=== PATIENT | female | born 1965 | race Caucasian/White ===

== ENCOUNTER 2018-10-17 15:25 | Inpatient (IN) ==
[2018-10-17] MEDS ORDERED: ONDANSETRON 4 MG/2 ML VIAL IV STA (16:00)
[2018-10-17] MEDS ORDERED: SODIUM CHLORIDE 0.9% 1,000 ML IV STA ×3 (16:00→19:39)
[2018-10-17] MEDS ORDERED: PANTOPRAZOLE 40 MG VIAL IV STA (16:00)
[2018-10-17 16:28] LABS: Basophils % 0.2 % (0.0-0.8); Eosinophils # 0.5 10*3/uL (0.0-0.87); Eosinophils % 7.7 % (0.00-10.9); Hematocrit 39.2 VOL% (35.7-47.0); Hemoglobin 12.4 GM/DL (12.0-16.0); Immature Granulocytes % 0.5 %; Immature Granulocytes Absolute 0.03 #; Lymphocytes # 1.1 10*3/uL (1.4-4.0); Lymphocytes % 16.1 % (21.3-54.2); Mean Corpuscular HGB Conc 31.6 GM/DL (32-36); Mean Corpuscular Hemoglobin 34 PG (27-34); Mean Corpuscular Volume 105.9 FL (87-102); Mean Platelet Volume 10.8 FL (9.6-12.0); Monocytes # 0.8 10*3/uL (0.11-0.8); Monocytes % 12.4 % (1.7-12.7); Neutrophils # 4.2 10*3/uL (1.4-7.4); Neutrophils % 63.1 % (38.7-73.9); Platelet Count 124 T/CUMM (130-400); Red Cell Distribution Width 13.2 % (9.3-17.3); White Blood Count 6.6 T/CUMM (4-12)
[2018-10-17 16:49] LABS: PT Patient Result 10.7 SECS; Partial Thromboplastin Time 23.6 SECS (0-40)
[2018-10-17 16:51] LABS: Apearance,Urine CLOUDY (Clear); Bilirubin,Urine Negative (Negative); Blood, Urine Negative (Negative); Glucose,Urine (UA) Negative (Negative); Hyaline Casts,Urine 4 /LPF (0-3); Ketones,Urine Negative (Negative); Mucus,Urine Occasional /LPF (Occasional); Nitrite,Urine Negative (Negative); Protein,Urine 30 MG/DL; RBC,Urine 1 /HPF (0-4); Squamous Epithelial Cell,Urine Occasional /HPF (0-10); Urine Specific Gravity 1.018 (1.001-1.035); WBC,Urine 3 /HPF (0-6)
[2018-10-17 16:52] LABS: Urine Color Yellow (Yellow)
[2018-10-17 17:00] LABS: Alanine Aminotransferase 35 U/L (13-56); Alkaline Phosphatase 51 U/L (45-117); Aspartate Amino Transferase 32 U/L (0-37); Blood Urea Nitrogen 44 MG/DL (7-18); Calcium 8.7 MG/DL (8.5-10.1); Glucose 99 MG/DL (74-106); Potassium 4.6 MMOL/L (3.5-5.1); Sodium 136 MMOL/L (136-145); Total Protein 6.3 G/DL (6.4-8.3); Troponin I < 0.015 NG/ML (0.00-0.045)
[2018-10-17] MEDS ORDERED: ACETAMINOPHEN 325 MG TABLET PO PRN (19:42)
[2018-10-17] MEDS: SODIUM CHLORIDE 0.9% 1,000 ML IV SCH (20:57)
[2018-10-17] MEDS ORDERED: FLUTICASONE 50 MCG NASAL SPRAY 16 GM BOTTLE BOTH NARES PRN (20:57)
[2018-10-17] MEDS ORDERED: CIPROFLOXACIN INJ 400 MG in PREMIX 1 EACH IV SCH (21:00)
[2018-10-17] MEDS ORDERED: NOREPINEPHRINE 16 MG in SODIUM CHLORIDE 0.9% 234 ML IV PRN (21:22)
[2018-10-17] MEDS ORDERED: NOREPINEPHRINE 4 MG/4 ML VIAL IV ONE (21:34)
[2018-10-17] MEDS: NOREPINEPHRINE 8 MG in SODIUM CHLORIDE 0.9% 242 ML IV PRN (21:39)
[2018-10-17] MEDS: DIVALPROEX 500 MG TABLET PO SCH (21:54)
[2018-10-17] MEDS: CALCIUM CARBONATE CHEW 500 MG TABLET PO SCH (21:54)
[2018-10-17] MEDS: OMEGA 3 ACID ETHYL ESTERS 1 GM CAPSULE PO SCH (21:54)
[2018-10-17] MEDS: MELATONIN 3 MG TABLET PO SCH (21:54)
[2018-10-17] MEDS: ROSUVASTATIN 20 MG TABLET PO SCH (21:54)
[2018-10-17] MEDS: risperiDONE 1 MG TABLET PO SCH (21:54)
[2018-10-17] MEDS: MONTELUKAST 10 MG TABLET PO SCH (21:54)
[2018-10-17] MEDS: FLUTICASONE/SALMETEROL 250-50 DISKUS 14 DOSE INH SCH (22:08)
[2018-10-17] MEDS: CIPROFLOXACIN INJ 400 MG in PREMIX 1 EACH IV SCH (22:09)
[2018-10-17] MEDS: LACTOBACILLUS ACIDOPHILUS/BULGARICUS CHEW TABLET PO SCH (22:09)
[2018-10-17 22:12] LABS: Hemoglobin 11.6 GM/DL (12.0-16.0)
[2018-10-18] MEDS ORDERED: SODIUM CHLORIDE 0.9% 1,000 ML IV ONE (02:32)
[2018-10-18] MEDS: NOREPINEPHRINE 8 MG in SODIUM CHLORIDE 0.9% 242 ML IV PRN (03:32)
[2018-10-18] MEDS ORDERED: SODIUM CHLORIDE 0.9% 500 ML IV ONE (04:00)
[2018-10-18] MEDS: DOPamine 800 MG/250 ML PREMIX IV PRN ×5 (04:08→20:31)
[2018-10-18 04:19] LABS: Basophils % 0.3 % (0.0-0.8); Eosinophils # 0.5 10*3/uL (0.0-0.87); Eosinophils % 6.6 % (0.00-10.9); Hematocrit 37.3 VOL% (35.7-47.0); Hemoglobin 11.6 GM/DL (12.0-16.0); Immature Granulocytes % 0.3 %; Immature Granulocytes Absolute 0.02 #; Lymphocytes # 1.2 10*3/uL (1.4-4.0); Mean Corpuscular HGB Conc 31.1 GM/DL (32-36); Mean Corpuscular Hemoglobin 33 PG (27-34); Mean Corpuscular Volume 107.2 FL (87-102); Mean Platelet Volume 11.6 FL (9.6-12.0); Neutrophils # 4.7 10*3/uL (1.4-7.4); Neutrophils % 63.8 % (38.7-73.9); Red Blood Count 3.48 MC/CUMM (3.8-5.5); Red Cell Distribution Width 13.4 % (9.3-17.3); White Blood Count 7.3 T/CUMM (4-12)
[2018-10-18 04:20] LABS: Platelet Count 94 T/CUMM (130-400)
[2018-10-18] MEDS: ONDANSETRON 4 MG/2 ML VIAL IV PRN ×2 (04:39→12:55)
[2018-10-18 04:47] LABS: Calcium 7.6 MG/DL (8.5-10.1); Osmolality,Calculated 288.5 MOS/KG (273-304); Potassium 4.8 MMOL/L (3.5-5.1)
[2018-10-18] MEDS ORDERED: HYDROCORTISONE 100 MG VIAL IV ONE (04:48)
[2018-10-18] MEDS: SODIUM CHLORIDE 0.9% 1,000 ML IV SCH (04:57)
[2018-10-18 05:03] LABS: Platelet Estimate Decreased
[2018-10-18 05:04] LABS: Polychromasia Slight
[2018-10-18 05:12] LABS: ABG Base Excess -5.9 MMOL/L (-2.5-2.5); ABG HCO3 19.5 MMOL/L (20-26); ABG Oxygen Saturation 93.9 % (95-100); ABG PH 7.259 (7.35-7.45); ABG PO2 76.9 MM HG (80-95); ABG TCO2 19.4 MMOL/L (23-27)
[2018-10-18] MEDS ORDERED: PROMETHAZINE 25 MG/1 ML VIAL IM ONE (05:13)
[2018-10-18 05:20] LABS: Free T4 (Free Thyroxine) 0.82 NG/DL (0.76-1.46); Thyroid Stimulating Hormone 1.47 uIU/ml (0.358-3.74)
[2018-10-18] MEDS ORDERED: SODIUM BICARBONATE 50 MEQ/50 ML SYRINGE IV ONE ×2 (05:23→05:27)
[2018-10-18] MEDS ORDERED: VANCOMYCIN INJ 1,500 MG in SODIUM CHLORIDE 0.9% 500 ML IV SCH (05:31)
[2018-10-18 05:52] LABS: Troponin I < 0.015 NG/ML (0.00-0.045)
[2018-10-18] MEDS: CALCIUM CARBONATE CHEW 500 MG TABLET PO SCH ×3 (06:07→21:37)
[2018-10-18] MEDS: PANTOPRAZOLE 40 MG TABLET PO SCH (06:07)
[2018-10-18] MEDS ORDERED: NOREPINEPHRINE 16 MG in SODIUM CHLORIDE 0.9% 234 ML IV PRN (09:00)
[2018-10-18 09:50] LABS: Hematocrit 38.9 VOL% (35.7-47.0); Hemoglobin 12.5 GM/DL (12.0-16.0)
[2018-10-18] MEDS: MULTIVITAMIN (CENTRUM) TABLET PO SCH (10:14)
[2018-10-18] MEDS: OMEGA 3 ACID ETHYL ESTERS 1 GM CAPSULE PO SCH ×2 (10:14→21:37)
[2018-10-18] MEDS: risperiDONE 1 MG TABLET PO SCH ×2 (10:14→21:37)
[2018-10-18] MEDS: DIVALPROEX 500 MG TABLET PO SCH ×2 (10:14→21:37)
[2018-10-18] MEDS: SERTRALINE 100 MG TABLET PO SCH (10:14)
[2018-10-18] MEDS: FLUTICASONE/SALMETEROL 250-50 DISKUS 14 DOSE INH SCH ×2 (10:15→21:51)
[2018-10-18] MEDS: LACTOBACILLUS ACIDOPHILUS/BULGARICUS CHEW TABLET PO SCH ×2 (10:15→21:37)
[2018-10-18 16:15] LABS: Hematocrit 34.4 VOL% (35.7-47.0); Hemoglobin 11.3 GM/DL (12.0-16.0)
[2018-10-18] MEDS: ROSUVASTATIN 20 MG TABLET PO SCH (21:37)
[2018-10-18] MEDS: MELATONIN 3 MG TABLET PO SCH (21:38)
[2018-10-18] MEDS: MONTELUKAST 10 MG TABLET PO SCH (21:38)
[2018-10-18] MEDS: CIPROFLOXACIN INJ 400 MG in PREMIX 1 EACH IV SCH (21:49)
[2018-10-19 04:34] LABS: Basophils % 0.4 % (0.0-0.8); Eosinophils # 0.2 10*3/uL (0.0-0.87); Eosinophils % 3.2 % (0.00-10.9); Hematocrit 33.1 VOL% (35.7-47.0); Hemoglobin 10.4 GM/DL (12.0-16.0); Immature Granulocytes % 0.2 %; Immature Granulocytes Absolute 0.01 #; Lymphocytes # 0.9 10*3/uL (1.4-4.0); Lymphocytes % 16.4 % (21.3-54.2); Mean Corpuscular HGB Conc 31.4 GM/DL (32-36); Mean Corpuscular Hemoglobin 33 PG (27-34); Mean Corpuscular Volume 105.1 FL (87-102); Mean Platelet Volume 10.2 FL (9.6-12.0); Monocytes # 0.8 10*3/uL (0.11-0.8); Monocytes % 15.1 % (1.7-12.7); Neutrophils # 3.4 10*3/uL (1.4-7.4); Neutrophils % 64.7 % (38.7-73.9); Red Blood Count 3.15 MC/CUMM (3.8-5.5); Red Cell Distribution Width 12.7 % (9.3-17.3); White Blood Count 5.3 T/CUMM (4-12)
[2018-10-19 04:40] LABS: Platelet Count 95 T/CUMM (130-400)
[2018-10-19 04:57] LABS: Alanine Aminotransferase 21 U/L (13-56); Albumin 2.4 G/DL (3.4-5.0); Alkaline Phosphatase 42 U/L (45-117); Aspartate Amino Transferase 11 U/L (0-37); Bilirubin,Total < 0.39 MG/DL (0.2-1.0); Blood Urea Nitrogen 17 MG/DL (7-18); Calcium 8.4 MG/DL (8.5-10.1); Glucose 110 MG/DL (74-106); Osmolality,Calculated 290.7 MOS/KG (273-304); Potassium 5.1 MMOL/L (3.5-5.1); Sodium 145 MMOL/L (136-145); Total Protein 5.8 G/DL (6.4-8.3)
[2018-10-19 05:07] LABS: Platelet Estimate Decreased
[2018-10-19 05:08] LABS: Hypochromasia 1+
[2018-10-19] MEDS: PANTOPRAZOLE 40 MG TABLET PO SCH (06:26)
[2018-10-19] MEDS: CALCIUM CARBONATE CHEW 500 MG TABLET PO SCH ×3 (06:27→21:18)
[2018-10-19] MEDS: OMEGA 3 ACID ETHYL ESTERS 1 GM CAPSULE PO SCH ×2 (08:06→21:18)
[2018-10-19] MEDS: DIVALPROEX 500 MG TABLET PO SCH ×2 (08:06→21:18)
[2018-10-19] MEDS: MULTIVITAMIN (CENTRUM) TABLET PO SCH (08:06)
[2018-10-19] MEDS: SERTRALINE 100 MG TABLET PO SCH (08:06)
[2018-10-19] MEDS: risperiDONE 1 MG TABLET PO SCH ×2 (08:07→21:18)
[2018-10-19] MEDS: LACTOBACILLUS ACIDOPHILUS/BULGARICUS CHEW TABLET PO SCH ×2 (08:07→21:18)
[2018-10-19] MEDS: FLUTICASONE/SALMETEROL 250-50 DISKUS 14 DOSE INH SCH ×2 (08:07→21:18)
[2018-10-19] MEDS ORDERED: ASPIRIN EC 81 MG TABLET PO SCH (09:00)
[2018-10-19] MEDS: CIPROFLOXACIN INJ 400 MG in PREMIX 1 EACH IV SCH ×2 (09:41→23:05)
[2018-10-19] MEDS ORDERED: VANCOMYCIN INJ 1,500 MG in SODIUM CHLORIDE 0.9% 500 ML IV SCH (12:00)
[2018-10-19] MEDS: HYDROCORTISONE 1% CREAM 28 GM TUBE TOP SCH ×2 (14:31→21:18)
[2018-10-19] MEDS: MONTELUKAST 10 MG TABLET PO SCH (21:18)
[2018-10-19] MEDS: ROSUVASTATIN 20 MG TABLET PO SCH (21:18)
[2018-10-19] MEDS: MELATONIN 3 MG TABLET PO SCH (21:18)
[2018-10-20 05:05] LABS: Basophils % 0.7 % (0.0-0.8); Eosinophils # 0.4 10*3/uL (0.0-0.87); Eosinophils % 8.7 % (0.00-10.9); Hematocrit 32.2 VOL% (35.7-47.0); Hemoglobin 10.2 GM/DL (12.0-16.0); Immature Granulocytes % 0.2 %; Immature Granulocytes Absolute 0.01 #; Lymphocytes % 24.8 % (21.3-54.2); Mean Corpuscular HGB Conc 31.7 GM/DL (32-36); Mean Corpuscular Hemoglobin 34 PG (27-34); Mean Corpuscular Volume 106.3 FL (87-102); Mean Platelet Volume 10.2 FL (9.6-12.0); Monocytes # 0.5 10*3/uL (0.11-0.8); Monocytes % 12.9 % (1.7-12.7); Neutrophils # 2.2 10*3/uL (1.4-7.4); Neutrophils % 52.7 % (38.7-73.9); Red Blood Count 3.03 MC/CUMM (3.8-5.5); Red Cell Distribution Width 12.6 % (9.3-17.3); White Blood Count 4.1 T/CUMM (4-12)
[2018-10-20 05:07] LABS: Platelet Count 95 T/CUMM (130-400)
[2018-10-20 05:19] LABS: Calcium 8.7 MG/DL (8.5-10.1)
[2018-10-20 05:27] LABS: Platelet Estimate Decreased; Polychromasia Slight
[2018-10-20] MEDS: PANTOPRAZOLE 40 MG TABLET PO SCH (06:52)
[2018-10-20] MEDS: CALCIUM CARBONATE CHEW 500 MG TABLET PO SCH ×3 (06:53→21:59)
[2018-10-20] MEDS ORDERED: MAGNESIUM SULF RIDER 2 GM in PREMIX 1 EACH IV PRN (07:54)
[2018-10-20] MEDS ORDERED: MAGNESIUM SULF RIDER 4 GM in PREMIX 1 EACH IV PRN (07:54)
[2018-10-20] MEDS: MULTIVITAMIN (CENTRUM) TABLET PO SCH (09:07)
[2018-10-20] MEDS: LACTOBACILLUS ACIDOPHILUS/BULGARICUS CHEW TABLET PO SCH ×2 (09:07→21:59)
[2018-10-20] MEDS: SERTRALINE 100 MG TABLET PO SCH (09:07)
[2018-10-20] MEDS: DIVALPROEX 500 MG TABLET PO SCH ×2 (09:07→22:00)
[2018-10-20] MEDS: OMEGA 3 ACID ETHYL ESTERS 1 GM CAPSULE PO SCH ×2 (09:07→22:16)
[2018-10-20] MEDS: risperiDONE 1 MG TABLET PO SCH ×2 (09:07→21:59)
[2018-10-20] MEDS: FLUTICASONE/SALMETEROL 250-50 DISKUS 14 DOSE INH SCH ×2 (09:08→22:00)
[2018-10-20] MEDS: HYDROCORTISONE 1% CREAM 28 GM TUBE TOP SCH ×2 (09:08→22:00)
[2018-10-20] MEDS: CIPROFLOXACIN INJ 400 MG in PREMIX 1 EACH IV SCH ×2 (09:08→22:00)
[2018-10-20] MEDS: NYSTATIN POWDER 15 GM BOTTLE TOP SCH ×2 (16:12→22:16)
[2018-10-20] MEDS: CLOTRIMAZOLE/BETAMETHASONE CREAM 15 GM TUBE TOP SCH ×2 (16:12→22:00)
[2018-10-20] MEDS: ROSUVASTATIN 20 MG TABLET PO SCH (21:59)
[2018-10-20] MEDS: MONTELUKAST 10 MG TABLET PO SCH (21:59)
[2018-10-20] MEDS: MELATONIN 3 MG TABLET PO SCH (21:59)
[2018-10-21 04:57] LABS: Basophils % 0.8 % (0.0-0.8); Eosinophils # 0.4 10*3/uL (0.0-0.87); Eosinophils % 11.1 % (0.00-10.9); Hematocrit 32.2 VOL% (35.7-47.0); Hemoglobin 10.7 GM/DL (12.0-16.0); Immature Granulocytes % 0.3 %; Immature Granulocytes Absolute 0.01 #; Lymphocytes % 27.5 % (21.3-54.2); Mean Corpuscular HGB Conc 33.2 GM/DL (32-36); Mean Corpuscular Hemoglobin 34 PG (27-34); Mean Corpuscular Volume 102.9 FL (87-102); Mean Platelet Volume 10.5 FL (9.6-12.0); Monocytes # 0.5 10*3/uL (0.11-0.8); Monocytes % 14.2 % (1.7-12.7); Neutrophils # 1.7 10*3/uL (1.4-7.4); Neutrophils % 46.1 % (38.7-73.9); Red Blood Count 3.13 MC/CUMM (3.8-5.5); Red Cell Distribution Width 12.1 % (9.3-17.3); White Blood Count 3.6 T/CUMM (4-12)
[2018-10-21 05:02] LABS: Platelet Count 98 T/CUMM (130-400)
[2018-10-21 05:14] VITALS: BP 100/45
[2018-10-21 05:25] LABS: Eosinophils 19 % (0-10); Hypochromasia 1+; Lymphocytes 34 % (20-55); Ovalocytes Slight; Platelet Estimate Decreased; Segmented Neutrophils 40 % (50-85); Total Cells Counted 100
[2018-10-21 05:26] LABS: Calcium 8.8 MG/DL (8.5-10.1); Osmolality,Calculated 273.7 MOS/KG (273-304); Potassium 4.2 MMOL/L (3.5-5.1)
[2018-10-21] MEDS: CALCIUM CARBONATE CHEW 500 MG TABLET PO SCH ×2 (05:52→14:11)
[2018-10-21] MEDS: PANTOPRAZOLE 40 MG TABLET PO SCH (05:52)
[2018-10-21] MEDS: MULTIVITAMIN (CENTRUM) TABLET PO SCH (09:23)
[2018-10-21] MEDS: risperiDONE 1 MG TABLET PO SCH (09:24)
[2018-10-21] MEDS: OMEGA 3 ACID ETHYL ESTERS 1 GM CAPSULE PO SCH (09:24)
[2018-10-21] MEDS: DIVALPROEX 500 MG TABLET PO SCH (09:24)
[2018-10-21] MEDS: SERTRALINE 100 MG TABLET PO SCH (09:24)
[2018-10-21] MEDS: CLOTRIMAZOLE/BETAMETHASONE CREAM 15 GM TUBE TOP SCH (09:25)
[2018-10-21] MEDS: FLUTICASONE/SALMETEROL 250-50 DISKUS 14 DOSE INH SCH (09:25)
[2018-10-21] MEDS: LACTOBACILLUS ACIDOPHILUS/BULGARICUS CHEW TABLET PO SCH (09:25)
[2018-10-21] MEDS: HYDROCORTISONE 1% CREAM 28 GM TUBE TOP SCH (09:26)
[2018-10-21] MEDS: NYSTATIN POWDER 15 GM BOTTLE TOP SCH (09:26)
[2018-10-21] MEDS: CIPROFLOXACIN INJ 400 MG in PREMIX 1 EACH IV SCH (09:30)
[2018-10-21 13:44] LABS: Folate > 24.0 NG/ML (5.4-24.0); Vitamin B12 353 PG/ML (211-911)
[2018-10-21] MEDS ORDERED: MAGNESIUM HYDROXIDE SUSP 30 ML UDCUP PO PRN (13:49)
[2018-10-21] MEDS ORDERED: ONDANSETRON 4 MG TABLET PO PRN (13:49)
[2018-10-21] MEDS ORDERED: CYCLOBENZAPRINE 10 MG TABLET PO SCH (21:00)
[2018-10-22] MEDS ORDERED: ASPIRIN EC 81 MG TABLET PO SCH (08:00)
[2018-10-22] MEDS ORDERED: LISINOPRIL 5 MG TABLET PO SCH (08:00)
[2018-10-22] MEDS ORDERED: SPIRONOLACTONE 25 MG TABLET PO SCH (08:00)
[2018-10-22] MEDS ORDERED: ATENOLOL 25 MG TABLET PO SCH (08:00)
[2018-10-22] MEDS ORDERED: NAPROXEN 250 MG TABLET PO SCH (08:00)
== END 2018-10-21 17:17 | DRG 254 ==
LOC: EDUNIT# → EDBD → N.EDINP 15:25 → N.ED 15:25 → N.CC 20:28 → SUATTDRO 10-18 08:26
PROVIDERS: ADMIT Internal Medicine; ATTEND Phlebology

== ENCOUNTER 2020-01-19 08:40 | Inpatient (IN) ==
[2020-01-19] MEDS ORDERED: SODIUM CHLORIDE 0.9% 1,000 ML IV STA (09:40)
[2020-01-19] MEDS ORDERED: VANCOMYCIN INJ 1,000 MG in SODIUM CHLORIDE 0.9% 250 ML IV STA (09:48)
[2020-01-19] MEDS ORDERED: NOREPINEPHRINE 4 MG/4 ML VIAL IV ONE (09:53)
[2020-01-19 09:57] LABS: Eosinophils % 0.6 % (0.00-10.9); Hematocrit 41.1 VOL% (35.7-47.0); Hemoglobin 13.4 GM/DL (12.0-16.0); Immature Granulocytes % 0.3 %; Immature Granulocytes Absolute 0.01 #; Lymphocytes # 0.3 10*3/uL (1.4-4.0); Lymphocytes % 8.3 % (21.3-54.2); Mean Corpuscular HGB Conc 32.6 GM/DL (32-36); Mean Corpuscular Volume 102.5 FL (87-102); Mean Platelet Volume 10.8 FL (9.6-12.0); Monocytes % 6.3 % (1.7-12.7); Neutrophils % 84.5 % (38.7-73.9); Red Blood Count 4.01 MC/CUMM (3.8-5.5); Red Cell Distribution Width 12.8 % (9.3-17.3); White Blood Count 3.5 T/CUMM (4-12)
[2020-01-19 10:00] LABS: Platelet Count 75 T/CUMM (130-400)
[2020-01-19] MEDS: NOREPINEPHRINE 8 MG in SODIUM CHLORIDE 0.9% 242 ML IV PRN (10:00)
[2020-01-19 10:10] LABS: Apearance,Urine CLEAR (Clear); Bilirubin,Urine Negative (Negative); Blood, Urine Negative (Negative); Glucose,Urine (UA) Negative (Negative); Ketones,Urine Negative (Negative); Mucus,Urine Occasional /LPF (Occasional); Nitrite,Urine Negative (Negative); Protein,Urine Negative; RBC,Urine 1 /HPF (0-4); Squamous Epithelial Cell,Urine Occasional /HPF (0-10); Urine Color Yellow (Yellow); Urine Specific Gravity 1.015 (1.001-1.035); Urine Urobilinogen < 2.0 EU/DL (0.2-1.0); WBC,Urine <1 /HPF (0-6)
[2020-01-19 10:12] LABS: Alanine Aminotransferase 31 U/L (13-56); Albumin 2.5 G/DL (3.4-5.0); Alkaline Phosphatase 69 U/L (45-117); Aspartate Amino Transferase 29 U/L (0-37); Bilirubin,Total < 0.39 MG/DL (0.2-1.0); Blood Urea Nitrogen 41 MG/DL (7-18); Calcium 8.2 MG/DL (8.5-10.1); Estimated Glom Filtration Rate 47 ML/MIN; Glucose 103 MG/DL (74-106); Total Protein 6.3 G/DL (6.4-8.3); Troponin I < 0.015 NG/ML (0.00-0.045)
[2020-01-19 10:16] LABS: Platelet Estimate Decreased
[2020-01-19 10:29] LABS: Ferritin 586.7 ng/ml (8-252)
[2020-01-19 10:40] LABS: Barbiturates Screen,Urine Negative (Negative); Benzodiazepines Screen,Urine Negative (Negative); Cannabinoid Screen,Urine Negative (Negative); Opiate Screen,Urine Positive (Negative); Phencyclidine Screen,Urine Negative (Negative)
[2020-01-19 10:58] LABS: ABG HCO3 22.7 MMOL/L (20-26); ABG Oxygen Saturation 97.7 % (95-100); ABG TCO2 25.7 MMOL/L (23-27)
[2020-01-19 11:01] LABS: ABG PCO2 72.5 MM HG (35-48); ABG PH 7.204 (7.35-7.45)
[2020-01-19 11:05] LABS: Sedimentation Rate-Westergren 30 MM/HR (0-30)
[2020-01-19] MEDS ORDERED: ONDANSETRON 4 MG/2 ML VIAL IV PRN (13:02)
[2020-01-19] MEDS ORDERED: ALBUTEROL 2.5 MG/3 ML NEB RESP TX PRN (13:02)
[2020-01-19] MEDS: LACTATED RINGERS 1,000 ML IV SCH ×2 (13:15→23:00)
[2020-01-19] MEDS: ENOXAPARIN 40 MG/0.4 ML SYRINGE SUBCUT SCH (13:25)
[2020-01-19] MEDS ORDERED: FAMOTIDINE 20 MG/2 ML VIAL IV SCH (13:30)
[2020-01-19 14:34] LABS: ABG HCO3 21.7 MMOL/L (20-26); ABG Oxygen Saturation 90.4 % (95-100); ABG PCO2 57.3 MM HG (35-48); ABG PH 7.255 (7.35-7.45); ABG PO2 68.8 MM HG (80-95); ABG TCO2 22.7 MMOL/L (23-27)
[2020-01-19] MEDS: LACTULOSE 20 GM/30 ML UDCUP PER TUBE SCH ×2 (17:19→23:30)
[2020-01-20] MEDS: ACETAMINOPHEN 325 MG TABLET PO PRN (00:43)
[2020-01-20 06:15] LABS: Basophils % 0.3 % (0.0-0.8); Eosinophils % 0.2 % (0.00-10.9); Hematocrit 41.1 VOL% (35.7-47.0); Hemoglobin 13.2 GM/DL (12.0-16.0); Immature Granulocytes % 0.3 %; Immature Granulocytes Absolute 0.02 #; Lymphocytes # 1.2 10*3/uL (1.4-4.0); Lymphocytes % 18.8 % (21.3-54.2); Mean Corpuscular HGB Conc 32.1 GM/DL (32-36); Mean Corpuscular Volume 104.1 FL (87-102); Mean Platelet Volume 10.8 FL (9.6-12.0); Monocytes % 8.4 % (1.7-12.7); Platelet Count 48 T/CUMM (130-400); Red Blood Count 3.95 MC/CUMM (3.8-5.5); Red Cell Distribution Width 13.1 % (9.3-17.3); White Blood Count 6.3 T/CUMM (4-12)
[2020-01-20 06:23] LABS: INR 1.4; PT Patient Result 14.5 SECS (9.8-11.9)
[2020-01-20] MEDS: NOREPINEPHRINE 8 MG in SODIUM CHLORIDE 0.9% 242 ML IV PRN (06:24)
[2020-01-20] MEDS: LACTULOSE 20 GM/30 ML UDCUP PER TUBE SCH ×3 (06:24→16:51)
[2020-01-20 06:33] LABS: Macrocytosis Slight
[2020-01-20 06:34] LABS: Hypochromasia Slight; Platelet Estimate Decreased
[2020-01-20 07:06] LABS: Calcium 8.2 MG/DL (8.5-10.1); Osmolality,Calculated 281.4 MOS/KG (273-304)
[2020-01-20 08:05] LABS: Pt O2 Delivery Device BIPAP
[2020-01-20 08:06] LABS: ABG Base Excess 1.7 MMOL/L (-2.5-2.5); ABG HCO3 28.6 MMOL/L (20-26); ABG Oxygen Saturation 93.7 % (95-100); ABG PCO2 54.7 MM HG (35-48); ABG PH 7.336 (7.35-7.45); ABG PO2 73.5 MM HG (80-95); ABG TCO2 30.3 MMOL/L (23-27)
[2020-01-20] MEDS: FAMOTIDINE 20 MG/2 ML VIAL IV SCH ×2 (08:31→20:45)
[2020-01-20] MEDS: LACTATED RINGERS 1,000 ML IV SCH ×2 (08:34→20:25)
[2020-01-20] MEDS: LEVOFLOXACIN INJ 750 MG in PREMIX 1 EACH IV SCH (11:16)
[2020-01-20] MEDS: ENOXAPARIN 40 MG/0.4 ML SYRINGE SUBCUT SCH (13:03)
[2020-01-20] MEDS: methylPREDNISolone SOD SUC 40 MG/1 ML VIAL IV SCH (14:46)
[2020-01-21] MEDS: methylPREDNISolone SOD SUC 40 MG/1 ML VIAL IV SCH ×2 (01:41→16:31)
[2020-01-21 04:34] LABS: Basophils % 0.2 % (0.0-0.8); Hematocrit 37.6 VOL% (35.7-47.0); Hemoglobin 12.3 GM/DL (12.0-16.0); Immature Granulocytes % 0.3 %; Immature Granulocytes Absolute 0.02 #; Lymphocytes # 0.5 10*3/uL (1.4-4.0); Lymphocytes % 7.3 % (21.3-54.2); Mean Corpuscular HGB Conc 32.7 GM/DL (32-36); Mean Corpuscular Volume 102.5 FL (87-102); Mean Platelet Volume 10.2 FL (9.6-12.0); Monocytes % 3.1 % (1.7-12.7); Neutrophils % 89.1 % (38.7-73.9); Platelet Count 59 T/CUMM (130-400); Red Blood Count 3.67 MC/CUMM (3.8-5.5); Red Cell Distribution Width 12.6 % (9.3-17.3); White Blood Count 6.2 T/CUMM (4-12)
[2020-01-21 04:46] LABS: Bilirubin,Total 0.5 MG/DL (0.2-1.0); Calcium 8.5 MG/DL (8.5-10.1); Osmolality,Calculated 284.4 MOS/KG (273-304); Total Protein 5.8 G/DL (6.4-8.3)
[2020-01-21 04:56] LABS: Band Neutrophils 10 % (0-10); Lymphocytes 4 % (20-55); Nucleated Red Blood Cells 1 (0-5); Segmented Neutrophils 83 % (50-85); Total Cells Counted 100
[2020-01-21 04:57] LABS: Hypochromasia Slight; Macrocytosis Slight
[2020-01-21 05:00] LABS: ABG HCO3 31.4 MMOL/L (20-26); ABG Oxygen Saturation 91.8 % (95-100); ABG PCO2 54.1 MM HG (35-48); ABG PH 7.382 (7.35-7.45); ABG TCO2 33.1 MMOL/L (23-27); Allen Test Positive; Pt O2 Delivery Device BIPAP
[2020-01-21] MEDS: LACTULOSE 20 GM/30 ML UDCUP PER TUBE SCH ×3 (05:40→12:21)
[2020-01-21] MEDS: LACTATED RINGERS 1,000 ML IV SCH ×2 (07:31→16:10)
[2020-01-21] MEDS ORDERED: FLUTICASONE 50 MCG NASAL SPRAY 16 GM BOTTLE BOTH NARES PRN (07:48)
[2020-01-21] MEDS ORDERED: MAGNESIUM HYDROXIDE SUSP 30 ML UDCUP PO PRN (07:48)
[2020-01-21] MEDS ORDERED: MAGNESIUM SULF RIDER 4 GM in PREMIX 1 EACH IV ONE (07:53)
[2020-01-21] MEDS ORDERED: ONDANSETRON 4 MG TABLET PO PRN (08:51)
[2020-01-21] MEDS: atenoloL 25 MG TABLET PO SCH (09:20)
[2020-01-21] MEDS: FAMOTIDINE 20 MG/2 ML VIAL IV SCH ×2 (09:20→20:50)
[2020-01-21] MEDS: MULTIVITAMIN (CENTRUM) TABLET PO SCH (09:20)
[2020-01-21] MEDS: SPIRONOLACTONE 25 MG TABLET PO SCH (09:20)
[2020-01-21] MEDS: ASPIRIN CHEW 81 MG TABLET PO SCH (09:20)
[2020-01-21] MEDS: FLUTICASONE/SALMETEROL 250-50 DISKUS 14 DOSE INH SCH (09:34)
[2020-01-21] MEDS: GLUCOSAMINE HCL MSM CHONDROITN PO SCH (09:37)
[2020-01-21] MEDS ORDERED: POTASSIUM PHOSPHATE 40 MMOL in SODIUM CHLORIDE 0.9% 250 ML IV ONE (10:00)
[2020-01-21] MEDS: LACTOBACILLUS ACIDOPHILUS/BULGARICUS CHEW TABLET PO SCH (13:16)
[2020-01-21] MEDS: ENOXAPARIN 40 MG/0.4 ML SYRINGE SUBCUT SCH (14:45)
[2020-01-21] MEDS ORDERED: REMDESIVIR 200 MG in SODIUM CHLORIDE 0.9% 210 ML IV ONE (15:00)
[2020-01-21] MEDS: LEVOFLOXACIN INJ 750 MG in PREMIX 1 EACH IV SCH (18:04)
[2020-01-21] MEDS: ARIPiprazole 5 MG TABLET PO SCH (20:50)
[2020-01-21] MEDS: MONTELUKAST 10 MG TABLET PO SCH (20:50)
[2020-01-21] MEDS: ROSUVASTATIN 20 MG TABLET PO SCH (20:50)
[2020-01-21] MEDS: DIVALPROEX 500 MG TABLET PO SCH (20:50)
[2020-01-21] MEDS: OMEGA 3 ACID ETHYL ESTERS 1 GM CAPSULE PO SCH (20:50)
[2020-01-21] MEDS: MORPHINE 4 MG/1 ML VIAL IV PRN (21:22)
[2020-01-22] MEDS: methylPREDNISolone SOD SUC 40 MG/1 ML VIAL IV SCH ×2 (04:00→15:53)
[2020-01-22 05:34] LABS: Basophils % 0.1 % (0.0-0.8); Hematocrit 38.6 VOL% (35.7-47.0); Hemoglobin 12.2 GM/DL (12.0-16.0); Immature Granulocytes % 0.6 %; Immature Granulocytes Absolute 0.05 #; Lymphocytes # 0.5 10*3/uL (1.4-4.0); Lymphocytes % 5.7 % (21.3-54.2); Mean Corpuscular HGB Conc 31.6 GM/DL (32-36); Mean Platelet Volume 10.5 FL (9.6-12.0); Monocytes % 5.2 % (1.7-12.7); Neutrophils % 88.4 % (38.7-73.9); Red Blood Count 3.64 MC/CUMM (3.8-5.5); Red Cell Distribution Width 12.4 % (9.3-17.3); White Blood Count 8.6 T/CUMM (4-12)
[2020-01-22 05:35] LABS: Platelet Count 77 T/CUMM (130-400)
[2020-01-22 05:54] LABS: Bilirubin,Total 0.9 MG/DL (0.2-1.0); Calcium 8.3 MG/DL (8.5-10.1); Osmolality,Calculated 283.3 MOS/KG (273-304); Total Protein 5.9 G/DL (6.4-8.3)
[2020-01-22 06:02] LABS: Hypochromasia Slight; Macrocytosis Slight
[2020-01-22 06:03] LABS: Platelet Estimate Decreased
[2020-01-22] MEDS: FLUTICASONE/SALMETEROL 250-50 DISKUS 14 DOSE INH SCH ×3 (06:08→20:00)
[2020-01-22] MEDS: CALCIUM CARBONATE CHEW 500 MG TABLET PO SCH (06:09)
[2020-01-22] MEDS: GLUCOSAMINE HCL MSM CHONDROITN PO SCH (08:22)
[2020-01-22] MEDS: LACTOBACILLUS ACIDOPHILUS/BULGARICUS CHEW TABLET PO SCH (08:23)
[2020-01-22] MEDS: SPIRONOLACTONE 25 MG TABLET PO SCH (08:23)
[2020-01-22] MEDS: MULTIVITAMIN (CENTRUM) TABLET PO SCH (08:24)
[2020-01-22] MEDS: ASPIRIN CHEW 81 MG TABLET PO SCH (08:24)
[2020-01-22] MEDS: LACTULOSE 20 GM/30 ML UDCUP PER TUBE SCH (08:24)
[2020-01-22] MEDS: atenoloL 25 MG TABLET PO SCH (08:24)
[2020-01-22] MEDS: FLUoxetine 20 MG CAPSULE PO SCH (08:24)
[2020-01-22] MEDS: OMEGA 3 ACID ETHYL ESTERS 1 GM CAPSULE PO SCH ×2 (08:24→20:00)
[2020-01-22] MEDS: FAMOTIDINE 20 MG/2 ML VIAL IV SCH ×2 (08:24→20:00)
[2020-01-22] MEDS: ENOXAPARIN 120 MG/0.8 ML SYRINGE SUBCUT SCH ×2 (10:53→22:02)
[2020-01-22] MEDS: REMDESIVIR 100 MG in SODIUM CHLORIDE 0.9% 230 ML IV SCH (15:53)
[2020-01-22] MEDS: LEVOFLOXACIN INJ 750 MG in PREMIX 1 EACH IV SCH (17:11)
[2020-01-22] MEDS: ARIPiprazole 5 MG TABLET PO SCH (20:00)
[2020-01-22] MEDS: MONTELUKAST 10 MG TABLET PO SCH (20:00)
[2020-01-22] MEDS: DIVALPROEX 500 MG TABLET PO SCH (20:00)
[2020-01-22] MEDS: ROSUVASTATIN 20 MG TABLET PO SCH (20:00)
[2020-01-23] MEDS: MORPHINE 4 MG/1 ML VIAL IV PRN (00:35)
[2020-01-23] MEDS: methylPREDNISolone SOD SUC 40 MG/1 ML VIAL IV SCH ×2 (02:00→16:48)
[2020-01-23] MEDS: CALCIUM CARBONATE CHEW 500 MG TABLET PO SCH (06:48)
[2020-01-23 08:08] LABS: ABG Base Excess 6.5 MMOL/L (-2.5-2.5); ABG Oxygen Saturation 89.8 % (95-100); ABG PCO2 49.9 MM HG (35-48); ABG PH 7.425 (7.35-7.45); ABG TCO2 33.5 MMOL/L (23-27); Pt O2 Delivery Device BIPAP
[2020-01-23] MEDS: FLUTICASONE/SALMETEROL 250-50 DISKUS 14 DOSE INH SCH ×2 (09:04→22:19)
[2020-01-23] MEDS: LACTOBACILLUS ACIDOPHILUS/BULGARICUS CHEW TABLET PO SCH (09:05)
[2020-01-23] MEDS: FAMOTIDINE 20 MG/2 ML VIAL IV SCH ×2 (09:05→21:45)
[2020-01-23] MEDS: ENOXAPARIN 120 MG/0.8 ML SYRINGE SUBCUT SCH ×2 (09:05→21:54)
[2020-01-23] MEDS: LACTULOSE 20 GM/30 ML UDCUP PER TUBE SCH (09:06)
[2020-01-23] MEDS: OMEGA 3 ACID ETHYL ESTERS 1 GM CAPSULE PO SCH ×2 (09:07→21:53)
[2020-01-23] MEDS: FLUoxetine 20 MG CAPSULE PO SCH (09:07)
[2020-01-23] MEDS: SPIRONOLACTONE 25 MG TABLET PO SCH (09:07)
[2020-01-23] MEDS: MULTIVITAMIN (CENTRUM) TABLET PO SCH (09:07)
[2020-01-23] MEDS: GLUCOSAMINE HCL MSM CHONDROITN PO SCH (09:08)
[2020-01-23] MEDS: atenoloL 25 MG TABLET PO SCH (09:08)
[2020-01-23] MEDS: ASPIRIN CHEW 81 MG TABLET PO SCH (09:08)
[2020-01-23 09:50] LABS: Basophils % 0.2 % (0.0-0.8); Hematocrit 39.5 VOL% (35.7-47.0); Hemoglobin 12.9 GM/DL (12.0-16.0); Immature Granulocytes % 1.4 %; Immature Granulocytes Absolute 0.06 #; Lymphocytes # 0.7 10*3/uL (1.4-4.0); Lymphocytes % 15.5 % (21.3-54.2); Mean Corpuscular HGB Conc 32.7 GM/DL (32-36); Mean Corpuscular Volume 102.1 FL (87-102); Mean Platelet Volume 10.4 FL (9.6-12.0); Monocytes % 11.4 % (1.7-12.7); Neutrophils % 71.5 % (38.7-73.9); Red Blood Count 3.87 MC/CUMM (3.8-5.5); Red Cell Distribution Width 12.3 % (9.3-17.3); White Blood Count 4.4 T/CUMM (4-12)
[2020-01-23 09:52] LABS: Platelet Count 76 T/CUMM (130-400)
[2020-01-23 10:21] LABS: Hypochromasia 1+
[2020-01-23 10:22] LABS: Microcytosis Slight; Platelet Estimate Decreased
[2020-01-23 13:37] LABS: Alanine Aminotransferase 30 U/L (13-56); Albumin 1.8 G/DL (3.4-5.0); Alkaline Phosphatase 52 U/L (45-117); Aspartate Amino Transferase 33 U/L (0-37); Bilirubin,Total 0.44 MG/DL (0.2-1.0); Blood Urea Nitrogen 20 MG/DL (7-18); Calcium 8.4 MG/DL (8.5-10.1); Estimated Glom Filtration Rate 205 ML/MIN; Glucose 108 MG/DL (74-106); Total Protein 5.8 G/DL (6.4-8.3)
[2020-01-23 13:38] LABS: Osmolality,Calculated 280.5 MOS/KG (273-304)
[2020-01-23] MEDS: REMDESIVIR 100 MG in SODIUM CHLORIDE 0.9% 230 ML IV SCH (16:44)
[2020-01-23] MEDS: LEVOFLOXACIN INJ 750 MG in PREMIX 1 EACH IV SCH (18:43)
[2020-01-23] MEDS: ARIPiprazole 5 MG TABLET PO SCH (21:45)
[2020-01-23] MEDS: DIVALPROEX 500 MG TABLET PO SCH (21:46)
[2020-01-23] MEDS: MONTELUKAST 10 MG TABLET PO SCH (21:54)
[2020-01-23] MEDS: ROSUVASTATIN 20 MG TABLET PO SCH (21:59)
[2020-01-24] MEDS: methylPREDNISolone SOD SUC 40 MG/1 ML VIAL IV SCH ×2 (02:30→14:52)
[2020-01-24] MEDS: CALCIUM CARBONATE CHEW 500 MG TABLET PO SCH (06:00)
[2020-01-24] MEDS: GLUCOSAMINE HCL MSM CHONDROITN PO SCH (09:04)
[2020-01-24] MEDS: MULTIVITAMIN (CENTRUM) TABLET PO SCH (09:06)
[2020-01-24] MEDS: atenoloL 25 MG TABLET PO SCH (09:06)
[2020-01-24] MEDS: LACTOBACILLUS ACIDOPHILUS/BULGARICUS CHEW TABLET PO SCH (09:06)
[2020-01-24] MEDS: ASPIRIN CHEW 81 MG TABLET PO SCH (09:06)
[2020-01-24] MEDS: FLUoxetine 20 MG CAPSULE PO SCH (09:07)
[2020-01-24] MEDS: SPIRONOLACTONE 25 MG TABLET PO SCH (09:07)
[2020-01-24] MEDS: OMEGA 3 ACID ETHYL ESTERS 1 GM CAPSULE PO SCH ×2 (09:07→22:07)
[2020-01-24] MEDS: FAMOTIDINE 20 MG/2 ML VIAL IV SCH ×2 (09:07→21:55)
[2020-01-24] MEDS: LACTULOSE 20 GM/30 ML UDCUP PER TUBE SCH (09:07)
[2020-01-24] MEDS: ENOXAPARIN 120 MG/0.8 ML SYRINGE SUBCUT SCH ×2 (09:08→22:08)
[2020-01-24] MEDS: FLUTICASONE/SALMETEROL 250-50 DISKUS 14 DOSE INH SCH ×2 (09:22→22:06)
[2020-01-24] MEDS: REMDESIVIR 100 MG in SODIUM CHLORIDE 0.9% 230 ML IV SCH (14:52)
[2020-01-24] MEDS: LEVOFLOXACIN INJ 750 MG in PREMIX 1 EACH IV SCH (16:32)
[2020-01-24] MEDS: ACETAMINOPHEN 325 MG TABLET PO PRN (16:54)
[2020-01-24] MEDS: ARIPiprazole 5 MG TABLET PO SCH (22:05)
[2020-01-24] MEDS: MONTELUKAST 10 MG TABLET PO SCH (22:06)
[2020-01-24] MEDS: DIVALPROEX 500 MG TABLET PO SCH (22:07)
[2020-01-24] MEDS: ROSUVASTATIN 20 MG TABLET PO SCH (22:08)
[2020-01-25] MEDS: methylPREDNISolone SOD SUC 40 MG/1 ML VIAL IV SCH ×2 (02:35→14:50)
[2020-01-25 05:35] LABS: Basophils % 0.3 % (0.0-0.8); Hematocrit 37.3 VOL% (35.7-47.0); Hemoglobin 12.4 GM/DL (12.0-16.0); Immature Granulocytes % 2.4 %; Immature Granulocytes Absolute 0.17 #; Lymphocytes # 0.6 10*3/uL (1.4-4.0); Lymphocytes % 8.6 % (21.3-54.2); Mean Corpuscular HGB Conc 33.2 GM/DL (32-36); Mean Corpuscular Volume 100.5 FL (87-102); Monocytes % 8.8 % (1.7-12.7); Neutrophils % 79.9 % (38.7-73.9); Red Blood Count 3.71 MC/CUMM (3.8-5.5); Red Cell Distribution Width 12.3 % (9.3-17.3)
[2020-01-25] MEDS: CALCIUM CARBONATE CHEW 500 MG TABLET PO SCH (06:04)
[2020-01-25 06:05] LABS: Platelet Count 142 T/CUMM (130-400); White Blood Count 7.2 T/CUMM (4-12)
[2020-01-25 07:05] LABS: Calcium 8.6 MG/DL (8.5-10.1)
[2020-01-25 07:06] LABS: Ferritin 701.5 ng/ml (8-252)
[2020-01-25] MEDS: LACTOBACILLUS ACIDOPHILUS/BULGARICUS CHEW TABLET PO SCH (10:01)
[2020-01-25] MEDS: LACTULOSE 20 GM/30 ML UDCUP PER TUBE SCH (10:01)
[2020-01-25] MEDS: OMEGA 3 ACID ETHYL ESTERS 1 GM CAPSULE PO SCH ×2 (10:01→21:03)
[2020-01-25] MEDS: ENOXAPARIN 120 MG/0.8 ML SYRINGE SUBCUT SCH ×2 (10:02→21:22)
[2020-01-25] MEDS: ASPIRIN CHEW 81 MG TABLET PO SCH (10:02)
[2020-01-25] MEDS: FLUoxetine 20 MG CAPSULE PO SCH (10:02)
[2020-01-25] MEDS: MULTIVITAMIN (CENTRUM) TABLET PO SCH (10:02)
[2020-01-25] MEDS: atenoloL 25 MG TABLET PO SCH (10:02)
[2020-01-25] MEDS: SPIRONOLACTONE 25 MG TABLET PO SCH (10:02)
[2020-01-25] MEDS: FAMOTIDINE 20 MG/2 ML VIAL IV SCH ×2 (10:02→20:59)
[2020-01-25] MEDS: GLUCOSAMINE HCL MSM CHONDROITN PO SCH (10:03)
[2020-01-25] MEDS: FLUTICASONE/SALMETEROL 250-50 DISKUS 14 DOSE INH SCH ×2 (10:03→21:06)
[2020-01-25] MEDS: REMDESIVIR 100 MG in SODIUM CHLORIDE 0.9% 230 ML IV SCH (14:50)
[2020-01-25] MEDS: LEVOFLOXACIN INJ 750 MG in PREMIX 1 EACH IV SCH (16:08)
[2020-01-25] MEDS: MONTELUKAST 10 MG TABLET PO SCH (21:03)
[2020-01-25] MEDS: DIVALPROEX 500 MG TABLET PO SCH (21:04)
[2020-01-25] MEDS: ROSUVASTATIN 20 MG TABLET PO SCH (21:05)
[2020-01-25] MEDS: ARIPiprazole 5 MG TABLET PO SCH (21:11)
[2020-01-26] MEDS: ACETAMINOPHEN 325 MG TABLET PO PRN ×2 (01:15→20:07)
[2020-01-26] MEDS: methylPREDNISolone SOD SUC 40 MG/1 ML VIAL IV SCH ×2 (03:02→15:05)
[2020-01-26] MEDS: CALCIUM CARBONATE CHEW 500 MG TABLET PO SCH (05:42)
[2020-01-26 06:02] LABS: Calcium 8.6 MG/DL (8.5-10.1); Osmolality,Calculated 292.8 MOS/KG (273-304)
[2020-01-26] MEDS: FAMOTIDINE 20 MG/2 ML VIAL IV SCH ×2 (09:33→20:08)
[2020-01-26] MEDS: OMEGA 3 ACID ETHYL ESTERS 1 GM CAPSULE PO SCH ×2 (09:36→20:06)
[2020-01-26] MEDS: MULTIVITAMIN (CENTRUM) TABLET PO SCH (09:36)
[2020-01-26] MEDS: ENOXAPARIN 120 MG/0.8 ML SYRINGE SUBCUT SCH ×2 (09:36→20:07)
[2020-01-26] MEDS: SPIRONOLACTONE 25 MG TABLET PO SCH (09:36)
[2020-01-26] MEDS: atenoloL 25 MG TABLET PO SCH (09:36)
[2020-01-26] MEDS: LACTULOSE 20 GM/30 ML UDCUP PER TUBE SCH (09:36)
[2020-01-26] MEDS: FLUTICASONE/SALMETEROL 250-50 DISKUS 14 DOSE INH SCH ×2 (09:36→20:07)
[2020-01-26] MEDS: FLUoxetine 20 MG CAPSULE PO SCH (09:36)
[2020-01-26] MEDS: ASPIRIN CHEW 81 MG TABLET PO SCH (09:36)
[2020-01-26 10:44] LABS: Basophils % 0.5 % (0.0-0.8); Hematocrit 36.9 VOL% (35.7-47.0); Hemoglobin 12.1 GM/DL (12.0-16.0); Immature Granulocytes % 6.2 %; Immature Granulocytes Absolute 0.46 #; Lymphocytes # 0.7 10*3/uL (1.4-4.0); Lymphocytes % 9.2 % (21.3-54.2); Mean Corpuscular HGB Conc 32.8 GM/DL (32-36); Mean Corpuscular Volume 100.5 FL (87-102); Mean Platelet Volume 10.3 FL (9.6-12.0); Monocytes % 6.5 % (1.7-12.7); NRBC # 0.03 10*3/uL; Neutrophils % 77.6 % (38.7-73.9); Platelet Count 194 T/CUMM (130-400); Red Blood Count 3.67 MC/CUMM (3.8-5.5); Red Cell Distribution Width 12.2 % (9.3-17.3); White Blood Count 7.4 T/CUMM (4-12)
[2020-01-26] MEDS: GLUCOSAMINE HCL MSM CHONDROITN PO SCH (11:22)
[2020-01-26] MEDS: LACTOBACILLUS ACIDOPHILUS/BULGARICUS CHEW TABLET PO SCH (11:22)
[2020-01-26 11:26] LABS: Band Neutrophils 2 % (0-10); Lymphocytes 5 % (20-55); Segmented Neutrophils 84 % (50-85); Total Cells Counted 100
[2020-01-26 11:28] LABS: Microcytosis Slight; Ovalocytes Slight; Platelet Estimate Adequate; Polychromasia Slight; Target Cells Slight
[2020-01-26] MEDS: LEVOFLOXACIN INJ 750 MG in PREMIX 1 EACH IV SCH (11:58)
[2020-01-26] MEDS: ARIPiprazole 5 MG TABLET PO SCH (20:06)
[2020-01-26] MEDS: MONTELUKAST 10 MG TABLET PO SCH (20:07)
[2020-01-26] MEDS: DIVALPROEX 500 MG TABLET PO SCH (20:07)
[2020-01-26] MEDS: ROSUVASTATIN 20 MG TABLET PO SCH (20:07)
[2020-01-27] MEDS: methylPREDNISolone SOD SUC 40 MG/1 ML VIAL IV SCH ×2 (02:00→21:37)
[2020-01-27] MEDS: CALCIUM CARBONATE CHEW 500 MG TABLET PO SCH (05:30)
[2020-01-27 06:09] LABS: Basophils # 0.1 10*3/uL (0.0-0.2); Basophils % 0.5 % (0.0-0.8); Hematocrit 36.5 VOL% (35.7-47.0); Hemoglobin 11.9 GM/DL (12.0-16.0); Immature Granulocytes % 6.4 %; Lymphocytes # 0.9 10*3/uL (1.4-4.0); Lymphocytes % 8.5 % (21.3-54.2); Mean Corpuscular HGB Conc 32.6 GM/DL (32-36); Mean Corpuscular Volume 102.8 FL (87-102); Mean Platelet Volume 10.1 FL (9.6-12.0); Monocytes % 8.5 % (1.7-12.7); NRBC # 0.05 10*3/uL; Neutrophils % 76.1 % (38.7-73.9); Platelet Count 251 T/CUMM (130-400); Red Blood Count 3.55 MC/CUMM (3.8-5.5); Red Cell Distribution Width 12.3 % (9.3-17.3)
[2020-01-27 06:30] LABS: Calcium 8.6 MG/DL (8.5-10.1); Osmolality,Calculated 293.4 MOS/KG (273-304)
[2020-01-27 07:09] LABS: Hypochromasia Slight; Lymphocytes 4 % (20-55); Microcytosis Slight; Platelet Estimate Adequate; Segmented Neutrophils 85 % (50-85); Total Cells Counted 100
[2020-01-27] MEDS: OMEGA 3 ACID ETHYL ESTERS 1 GM CAPSULE PO SCH ×2 (08:04→20:30)
[2020-01-27] MEDS: FAMOTIDINE 20 MG/2 ML VIAL IV SCH ×2 (08:04→20:30)
[2020-01-27] MEDS: LEVOFLOXACIN INJ 750 MG in PREMIX 1 EACH IV SCH (08:04)
[2020-01-27] MEDS: atenoloL 25 MG TABLET PO SCH (08:05)
[2020-01-27] MEDS: FLUoxetine 20 MG CAPSULE PO SCH (08:05)
[2020-01-27] MEDS: ACETAMINOPHEN 325 MG TABLET PO PRN (08:05)
[2020-01-27] MEDS: ASPIRIN CHEW 81 MG TABLET PO SCH (08:05)
[2020-01-27] MEDS: MULTIVITAMIN (CENTRUM) TABLET PO SCH (08:05)
[2020-01-27] MEDS: SPIRONOLACTONE 25 MG TABLET PO SCH (08:06)
[2020-01-27] MEDS: LACTULOSE 20 GM/30 ML UDCUP PER TUBE SCH (08:06)
[2020-01-27] MEDS: FLUTICASONE/SALMETEROL 250-50 DISKUS 14 DOSE INH SCH ×2 (08:06→20:30)
[2020-01-27] MEDS: ENOXAPARIN 60 MG/0.6 ML SYRINGE SUBCUT SCH ×2 (08:09→21:36)
[2020-01-27] MEDS: LACTOBACILLUS ACIDOPHILUS/BULGARICUS CHEW TABLET PO SCH (09:39)
[2020-01-27] MEDS: ARIPiprazole 5 MG TABLET PO SCH (20:30)
[2020-01-27] MEDS: MONTELUKAST 10 MG TABLET PO SCH (20:30)
[2020-01-27] MEDS: DIVALPROEX 500 MG TABLET PO SCH (20:30)
[2020-01-27] MEDS: ROSUVASTATIN 20 MG TABLET PO SCH (20:30)
[2020-01-28] MEDS: CALCIUM CARBONATE CHEW 500 MG TABLET PO SCH (05:58)
[2020-01-28 06:14] LABS: Basophils % 0.1 % (0.0-0.8); Hematocrit 29.7 VOL% (35.7-47.0); Hemoglobin 9.9 GM/DL (12.0-16.0); Immature Granulocytes % 4.3 %; Immature Granulocytes Absolute 0.44 #; Lymphocytes % 10.2 % (21.3-54.2); Mean Corpuscular HGB Conc 33.3 GM/DL (32-36); Mean Corpuscular Volume 101.7 FL (87-102); Mean Platelet Volume 9.9 FL (9.6-12.0); Monocytes % 6.6 % (1.7-12.7); NRBC # 0.04 10*3/uL; Neutrophils % 78.8 % (38.7-73.9); Platelet Count 216 T/CUMM (130-400); Red Blood Count 2.92 MC/CUMM (3.8-5.5); Red Cell Distribution Width 12.2 % (9.3-17.3); White Blood Count 10.2 T/CUMM (4-12)
[2020-01-28 06:37] LABS: Calcium 8.5 MG/DL (8.5-10.1); Osmolality,Calculated 285.1 MOS/KG (273-304)
[2020-01-28 08:12] LABS: % Iron Saturation 31.1 % (18-50)
[2020-01-28] MEDS: ENOXAPARIN 60 MG/0.6 ML SYRINGE SUBCUT SCH ×2 (08:36→21:04)
[2020-01-28] MEDS: FLUoxetine 20 MG CAPSULE PO SCH (08:36)
[2020-01-28] MEDS: ASPIRIN CHEW 81 MG TABLET PO SCH (08:36)
[2020-01-28] MEDS: LACTULOSE 20 GM/30 ML UDCUP PER TUBE SCH (08:36)
[2020-01-28] MEDS: FAMOTIDINE 20 MG/2 ML VIAL IV SCH ×2 (08:37→21:01)
[2020-01-28] MEDS: LACTOBACILLUS ACIDOPHILUS/BULGARICUS CHEW TABLET PO SCH (08:37)
[2020-01-28] MEDS: FLUTICASONE/SALMETEROL 250-50 DISKUS 14 DOSE INH SCH ×2 (08:37→21:01)
[2020-01-28] MEDS: MULTIVITAMIN (CENTRUM) TABLET PO SCH (08:37)
[2020-01-28] MEDS: SPIRONOLACTONE 25 MG TABLET PO SCH (08:37)
[2020-01-28] MEDS: atenoloL 25 MG TABLET PO SCH (08:37)
[2020-01-28] MEDS: OMEGA 3 ACID ETHYL ESTERS 1 GM CAPSULE PO SCH ×2 (08:37→21:00)
[2020-01-28] MEDS: methylPREDNISolone SOD SUC 40 MG/1 ML VIAL IV SCH ×2 (09:50→21:01)
[2020-01-28 13:46] LABS: Hematocrit 30.1 VOL% (35.7-47.0); Hemoglobin 9.9 GM/DL (12.0-16.0)
[2020-01-28] MEDS: ACETAMINOPHEN 325 MG TABLET PO PRN (14:54)
[2020-01-28] MEDS: ROSUVASTATIN 20 MG TABLET PO SCH (20:59)
[2020-01-28] MEDS: ARIPiprazole 5 MG TABLET PO SCH (20:59)
[2020-01-28] MEDS: MONTELUKAST 10 MG TABLET PO SCH (21:00)
[2020-01-28] MEDS: DIVALPROEX 500 MG TABLET PO SCH (21:00)
[2020-01-29] MEDS: ACETAMINOPHEN 325 MG TABLET PO PRN ×2 (04:14→10:32)
[2020-01-29 05:15] LABS: Basophils % 0.2 % (0.0-0.8); Hematocrit 29.2 VOL% (35.7-47.0); Hemoglobin 10.1 GM/DL (12.0-16.0); Immature Granulocytes % 4.5 %; Immature Granulocytes Absolute 0.64 #; Lymphocytes # 1.4 10*3/uL (1.4-4.0); Mean Corpuscular HGB Conc 34.6 GM/DL (32-36); Mean Platelet Volume 10.4 FL (9.6-12.0); Monocytes % 3.1 % (1.7-12.7); NRBC # 0.15 10*3/uL; Neutrophils % 82.2 % (38.7-73.9); Platelet Count 259 T/CUMM (130-400); Red Blood Count 2.95 MC/CUMM (3.8-5.5); Red Cell Distribution Width 12.5 % (9.3-17.3); White Blood Count 14.2 T/CUMM (4-12)
[2020-01-29 05:48] LABS: Calcium 8.5 MG/DL (8.5-10.1); Osmolality,Calculated 278.8 MOS/KG (273-304)
[2020-01-29 06:11] LABS: Band Neutrophils 1 % (0-10); Hypochromasia 1+; Lymphocytes 10 % (20-55); Microcytosis Slight; Platelet Estimate Adequate; Segmented Neutrophils 86 % (50-85); Total Cells Counted 100
[2020-01-29] MEDS: CALCIUM CARBONATE CHEW 500 MG TABLET PO SCH (06:26)
[2020-01-29] MEDS: SPIRONOLACTONE 25 MG TABLET PO SCH ×2 (07:11→07:15)
[2020-01-29] MEDS: FLUoxetine 20 MG CAPSULE PO SCH (07:11)
[2020-01-29] MEDS: atenoloL 25 MG TABLET PO SCH (07:11)
[2020-01-29] MEDS: MULTIVITAMIN (CENTRUM) TABLET PO SCH (07:11)
[2020-01-29] MEDS: OMEGA 3 ACID ETHYL ESTERS 1 GM CAPSULE PO SCH ×2 (07:11→22:50)
[2020-01-29] MEDS: LACTOBACILLUS ACIDOPHILUS/BULGARICUS CHEW TABLET PO SCH (07:12)
[2020-01-29] MEDS: ASPIRIN CHEW 81 MG TABLET PO SCH (07:12)
[2020-01-29] MEDS: FLUTICASONE/SALMETEROL 250-50 DISKUS 14 DOSE INH SCH (07:13)
[2020-01-29] MEDS: methylPREDNISolone SOD SUC 40 MG/1 ML VIAL IV SCH (08:00)
[2020-01-29] MEDS: LACTULOSE 20 GM/30 ML UDCUP PER TUBE SCH (08:00)
[2020-01-29] MEDS: ENOXAPARIN 60 MG/0.6 ML SYRINGE SUBCUT SCH (08:00)
[2020-01-29] MEDS: FAMOTIDINE 20 MG/2 ML VIAL IV SCH ×2 (08:06→23:55)
[2020-01-29 08:57] LABS: ABG Base Excess 6.1 MMOL/L (-2.5-2.5); ABG Oxygen Saturation 98.4 % (95-100); ABG PCO2 41.7 MM HG (35-48); ABG TCO2 27.5 MMOL/L (23-27); Pt O2 Delivery Device Other
[2020-01-29] MEDS ORDERED: SODIUM POLYSTYRENE SULFATE 15 GM/60 ML BOTTLE PO ONE (09:00)
[2020-01-29] MEDS ORDERED: SODIUM CHLORIDE 0.9% 500 ML IV ONE (14:54)
[2020-01-29] MEDS ORDERED: SODIUM CHLORIDE 0.9% 1,000 ML IV ONE (15:18)
[2020-01-29] MEDS ORDERED: GLUCAGON 1 MG VIAL IM PRN (15:28)
[2020-01-29] MEDS ORDERED: DEXTROSE 10% 250 ML BAG IV PRN (15:28)
[2020-01-29] MEDS: LACTULOSE 20 GM/30 ML UDCUP PO SCH (15:30)
[2020-01-29] MEDS: DEXAMETHASONE 4 MG/1 ML VIAL IV SCH (16:40)
[2020-01-29 16:47] LABS: Basophils % 0.1 % (0.0-0.8); Hematocrit 27.2 VOL% (35.7-47.0); Hemoglobin 9.3 GM/DL (12.0-16.0); Immature Granulocytes % 5.3 %; Immature Granulocytes Absolute 0.81 #; Lymphocytes # 1.2 10*3/uL (1.4-4.0); Lymphocytes % 7.5 % (21.3-54.2); Mean Corpuscular HGB Conc 34.2 GM/DL (32-36); Mean Corpuscular Volume 101.1 FL (87-102); Mean Platelet Volume 10.5 FL (9.6-12.0); Monocytes % 5.2 % (1.7-12.7); NRBC # 0.56 10*3/uL; Neutrophils % 81.9 % (38.7-73.9); Platelet Count 245 T/CUMM (130-400); Red Blood Count 2.69 MC/CUMM (3.8-5.5); White Blood Count 15.4 T/CUMM (4-12)
[2020-01-29 16:59] LABS: Alanine Aminotransferase 62 U/L (13-56); Albumin 2.3 G/DL (3.4-5.0); Alkaline Phosphatase 77 U/L (45-117); Aspartate Amino Transferase 103 U/L (0-37); Blood Urea Nitrogen 37 MG/DL (7-18); Calcium 7.9 MG/DL (8.5-10.1); Estimated Glom Filtration Rate 64 ML/MIN; Glucose 367 MG/DL (74-106); Osmolality,Calculated 293.1 MOS/KG (273-304); Total Protein 5.7 G/DL (6.4-8.3)
[2020-01-29 17:43] LABS: Band Neutrophils 3 % (0-10); Lymphocytes 2 % (20-55); Nucleated Red Blood Cells 2 (0-5); Segmented Neutrophils 94 % (50-85); Total Cells Counted 100
[2020-01-29 17:44] LABS: Platelet Estimate Adequate; Polychromasia 1+
[2020-01-29 17:45] LABS: Macrocytosis 1+; Microcytosis 1+
[2020-01-29] MEDS: LACTATED RINGERS 1,000 ML IV SCH ×2 (18:15→22:21)
[2020-01-29] MEDS: ACETAMINOPHEN 325 MG/10.15 ML UDCUP PO PRN (18:35)
[2020-01-29] MEDS: INSULIN REGULAR 100 UNIT/ML SUBCUT SCH (18:35)
[2020-01-29] MEDS ORDERED: LACTATED RINGERS 2,500 ML IV ONE (18:51)
[2020-01-29] MEDS ORDERED: NOREPINEPHRINE 4 MG/4 ML VIAL IV ONE (19:21)
[2020-01-29] MEDS: NOREPINEPHRINE 8 MG in SODIUM CHLORIDE 0.9% 242 ML IV PRN (19:30)
[2020-01-29] MEDS ORDERED: methylPREDNISolone SOD SUC 40 MG/1 ML VIAL IV SCH (20:00)
[2020-01-29 20:22] LABS: Apearance,Urine CLEAR (Clear); Bacteria,Urine Moderate /HPF (Few); Bilirubin,Urine Negative (Negative); Blood, Urine Small mg/dL (Negative); Glucose,Urine (UA) >=500 mg/dL (Negative); Ketones,Urine 5 mg/dL (Negative); Mucus,Urine Occasional /LPF (Occasional); Nitrite,Urine Negative (Negative); Protein,Urine 30 MG/DL; RBC,Urine 2 /HPF (0-4); Urine Color Yellow (Yellow); Urine Specific Gravity 1.026 (1.001-1.035); WBC,Urine 5 /HPF (0-6)
[2020-01-29 20:54] LABS: Basophils % 0.1 % (0.0-0.8); Hematocrit 22.5 VOL% (35.7-47.0); Hemoglobin 7.5 GM/DL (12.0-16.0); Immature Granulocytes % 4.8 %; Immature Granulocytes Absolute 0.82 #; Lymphocytes # 1.4 10*3/uL (1.4-4.0); Lymphocytes % 8.1 % (21.3-54.2); Mean Corpuscular HGB Conc 33.3 GM/DL (32-36); Mean Corpuscular Volume 102.7 FL (87-102); Mean Platelet Volume 10.3 FL (9.6-12.0); Monocytes % 6.2 % (1.7-12.7); NRBC # 0.41 10*3/uL; Neutrophils % 80.8 % (38.7-73.9); Platelet Count 186 T/CUMM (130-400); Red Blood Count 2.19 MC/CUMM (3.8-5.5); White Blood Count 17.2 T/CUMM (4-12)
[2020-01-29 21:15] LABS: Albumin 1.8 G/DL (3.4-5.0); Bilirubin,Total 0.4 MG/DL (0.2-1.0); Calcium 7.5 MG/DL (8.5-10.1); Osmolality,Calculated 297.4 MOS/KG (273-304); Total Protein 4.5 G/DL (6.4-8.3)
[2020-01-29 21:23] LABS: Lymphocytes 6 % (20-55); Macrocytosis 2+; Polychromasia 2+; Segmented Neutrophils 90 % (50-85); Total Cells Counted 100
[2020-01-29 21:24] LABS: Microcytosis 1+; Platelet Estimate Adequate
[2020-01-29 22:00] LABS: ABG Base Excess 5.3 MMOL/L (-2.5-2.5); ABG HCO3 29.2 MMOL/L (20-26); ABG PCO2 42.5 MM HG (35-48); ABG PH 7.452 (7.35-7.45)
[2020-01-29] MEDS: ROSUVASTATIN 20 MG TABLET PO SCH (22:20)
[2020-01-29] MEDS: MONTELUKAST 10 MG TABLET PO SCH (22:21)
[2020-01-29] MEDS: DIVALPROEX 500 MG TABLET PO SCH (22:51)
[2020-01-30] MEDS: FLUTICASONE/SALMETEROL 250-50 DISKUS 14 DOSE INH SCH ×3 (00:43→23:26)
[2020-01-30] MEDS: LACTULOSE 20 GM/30 ML UDCUP PO SCH ×5 (00:44→22:27)
[2020-01-30] MEDS: INSULIN REGULAR 100 UNIT/ML SUBCUT SCH ×4 (01:13→18:13)
[2020-01-30] MEDS ORDERED: LEVOFLOXACIN INJ 750 MG in PREMIX 1 EACH IV SCH (04:30)
[2020-01-30 05:00] LABS: Basophils % 0.1 % (0.0-0.8); Hematocrit 23.4 VOL% (35.7-47.0); Hemoglobin 7.5 GM/DL (12.0-16.0); Immature Granulocytes % 3.8 %; Immature Granulocytes Absolute 0.69 #; Lymphocytes # 1.6 10*3/uL (1.4-4.0); Mean Corpuscular HGB Conc 32.1 GM/DL (32-36); Mean Corpuscular Volume 105.9 FL (87-102); Mean Platelet Volume 10.5 FL (9.6-12.0); Monocytes % 10.2 % (1.7-12.7); NRBC # 0.34 10*3/uL; Neutrophils % 76.9 % (38.7-73.9); Platelet Count 198 T/CUMM (130-400); Red Blood Count 2.21 MC/CUMM (3.8-5.5); Red Cell Distribution Width 13.2 % (9.3-17.3); White Blood Count 17.9 T/CUMM (4-12)
[2020-01-30] MEDS: ACETAMINOPHEN 325 MG/10.15 ML UDCUP PO PRN ×4 (05:00→23:15)
[2020-01-30 05:14] LABS: Bilirubin,Total 0.7 MG/DL (0.2-1.0); Calcium 7.7 MG/DL (8.5-10.1); Osmolality,Calculated 293.5 MOS/KG (273-304); Total Protein 4.9 G/DL (6.4-8.3)
[2020-01-30] MEDS ORDERED: methylPREDNISolone SOD SUC 125 MG/2 ML VIAL IV ONE (05:24)
[2020-01-30] MEDS ORDERED: diphenhydrAMINE 25 MG/10 ML UDCUP PO ONE (05:25)
[2020-01-30 05:33] LABS: Hypochromasia 1+; Lymphocytes 8 % (20-55); Macrocytosis Slight; Nucleated Red Blood Cells 5 (0-5); Platelet Estimate Adequate; Polychromasia Slight; Segmented Neutrophils 88 % (50-85); Total Cells Counted 100
[2020-01-30] MEDS ORDERED: LACTATED RINGERS 1,000 ML IV ONE (06:18)
[2020-01-30] MEDS: LACTATED RINGERS 1,000 ML IV SCH ×4 (06:27→17:43)
[2020-01-30] MEDS: CALCIUM CARBONATE CHEW 500 MG TABLET PO SCH (07:21)
[2020-01-30] MEDS: FLUoxetine 20 MG CAPSULE PO SCH (08:11)
[2020-01-30] MEDS: FAMOTIDINE 20 MG/2 ML VIAL IV SCH ×2 (08:11→22:27)
[2020-01-30] MEDS: MULTIVITAMIN (CENTRUM) TABLET PO SCH (08:12)
[2020-01-30] MEDS: OMEGA 3 ACID ETHYL ESTERS 1 GM CAPSULE PO SCH ×2 (08:12→22:26)
[2020-01-30] MEDS: LACTOBACILLUS ACIDOPHILUS/BULGARICUS CHEW TABLET PO SCH (08:13)
[2020-01-30] MEDS: NOREPINEPHRINE 8 MG in SODIUM CHLORIDE 0.9% 242 ML IV PRN (10:30)
[2020-01-30] MEDS: DEXAMETHASONE 4 MG/1 ML VIAL IV SCH (16:20)
[2020-01-30] MEDS: VANCOMYCIN INJ 1,750 MG in SODIUM CHLORIDE 0.9% 500 ML IV SCH (17:42)
[2020-01-30] MEDS ORDERED: AMIODARONE 150 MG/3 ML VIAL ONE (20:03)
[2020-01-30] MEDS ORDERED: AMIODARONE INJ 150 MG in DEXTROSE 5% 100 ML IV ONE (20:10)
[2020-01-30 20:41] LABS: ABG Oxygen Saturation 90.3 % (95-100); ABG PCO2 30.2 MM HG (35-48); ABG PO2 61.9 MM HG (80-95); ABG TCO2 22.9 MMOL/L (23-27); Glucose Heart Surgery 406 MG/DL (74-106); Hemoglobin Heart Surgery 8.8 G/DL (12.0-16.0); Potassium Heart/CVR 4.5 MMOL/L (3.5-5.1)
[2020-01-30] MEDS: ARIPiprazole 5 MG TABLET PO SCH (22:25)
[2020-01-30] MEDS: ROSUVASTATIN 20 MG TABLET PO SCH (22:25)
[2020-01-30] MEDS: DIVALPROEX 500 MG TABLET PO SCH (22:25)
[2020-01-30] MEDS: MONTELUKAST 10 MG TABLET PO SCH (22:26)
[2020-01-31] MEDS: NOREPINEPHRINE 8 MG in SODIUM CHLORIDE 0.9% 242 ML IV PRN ×2 (00:30→07:30)
[2020-01-31] MEDS: INSULIN REGULAR 100 UNIT/ML SUBCUT SCH ×3 (01:22→11:50)
[2020-01-31] MEDS: LACTATED RINGERS 1,000 ML IV SCH ×2 (02:51→14:00)
[2020-01-31] MEDS: LACTULOSE 20 GM/30 ML UDCUP PO SCH ×3 (03:49→16:20)
[2020-01-31] MEDS ORDERED: METOPROLOL TARTRATE 5 MG/5 ML VIAL IV ONE ×4 (04:23→19:37)
[2020-01-31 05:03] LABS: ABG HCO3 21.6 MMOL/L (20-26); ABG Oxygen Saturation 93.8 % (95-100); ABG PCO2 28.9 MM HG (35-48); ABG PH 7.492 (7.35-7.45); ABG PO2 73.1 MM HG (80-95); ABG TCO2 22.5 MMOL/L (23-27)
[2020-01-31 05:05] LABS: Basophils # 0.1 10*3/uL (0.0-0.2); Basophils % 0.2 % (0.0-0.8); Hematocrit 23.7 VOL% (35.7-47.0); Hemoglobin 7.7 GM/DL (12.0-16.0); Immature Granulocytes % 4.3 %; Immature Granulocytes Absolute 0.96 #; Lymphocytes # 2.2 10*3/uL (1.4-4.0); Lymphocytes % 9.8 % (21.3-54.2); Mean Corpuscular HGB Conc 32.5 GM/DL (32-36); Mean Corpuscular Volume 104.9 FL (87-102); Mean Platelet Volume 11.3 FL (9.6-12.0); Monocytes % 11.3 % (1.7-12.7); NRBC # 1.95 10*3/uL; Neutrophils % 74.4 % (38.7-73.9); Platelet Count 190 T/CUMM (130-400); Red Blood Count 2.26 MC/CUMM (3.8-5.5); White Blood Count 22.4 T/CUMM (4-12)
[2020-01-31 05:16] LABS: Calcium 7.6 MG/DL (8.5-10.1); Osmolality,Calculated 296.7 MOS/KG (273-304)
[2020-01-31] MEDS: VANCOMYCIN INJ 1,750 MG in SODIUM CHLORIDE 0.9% 500 ML IV SCH ×2 (06:05→18:50)
[2020-01-31] MEDS: CALCIUM CARBONATE CHEW 500 MG TABLET PO SCH (06:15)
[2020-01-31] MEDS ORDERED: DILTIAZEM 50 MG/10 ML VIAL IV ONE (06:30)
[2020-01-31] MEDS ORDERED: DILTIAZEM 25 MG/5 ML VIAL IV ONE (06:34)
[2020-01-31] MEDS ORDERED: dilTIAZem Drip 125 MG/125 ML PREMIX IV SCH (07:00)
[2020-01-31] MEDS: FLUoxetine 20 MG CAPSULE PO SCH (08:10)
[2020-01-31] MEDS: OMEGA 3 ACID ETHYL ESTERS 1 GM CAPSULE PO SCH (08:10)
[2020-01-31] MEDS: FLUTICASONE/SALMETEROL 250-50 DISKUS 14 DOSE INH SCH (08:10)
[2020-01-31] MEDS: LACTOBACILLUS ACIDOPHILUS/BULGARICUS CHEW TABLET PO SCH (08:10)
[2020-01-31] MEDS ORDERED: PHENYLEPHRINE DRIP 40 MG/250 ML PREMIX IV PRN (08:31)
[2020-01-31] MEDS ORDERED: AMIODARONE INJ 150 MG in DEXTROSE 5% 100 ML IV ONE (08:31)
[2020-01-31] MEDS ORDERED: AMIODARONE 150 MG/3 ML VIAL ONE (08:32)
[2020-01-31] MEDS: MULTIVITAMIN (CENTRUM) TABLET PO SCH (08:33)
[2020-01-31] MEDS ORDERED: AMIODARONE 450 MG/9 ML VIAL IV ONE (08:33)
[2020-01-31] MEDS ORDERED: PHENYLEPHRINE DRIP 40 MG/250 ML PREMIX IV ONE (08:34)
[2020-01-31] MEDS: FAMOTIDINE 20 MG/2 ML VIAL IV SCH (08:34)
[2020-01-31] MEDS ORDERED: AMIODARONE INJ 450 MG in DEXTROSE 5% 241 ML IV SCH ×2 (08:50→14:50)
[2020-01-31] MEDS ORDERED: fentaNYL 100 MCG/2 ML VIAL ONE (09:53)
[2020-01-31] MEDS ORDERED: MIDAZOLAM 10 MG/2 ML VIAL ONE ×2 (09:58→19:40)
[2020-01-31 10:33] LABS: Band Neutrophils 2 % (0-10); Lymphocytes 6 % (20-55); Macrocytosis 1+; Nucleated Red Blood Cells 1 (0-5); Platelet Estimate Adequate; Polychromasia Few; Segmented Neutrophils 92 % (50-85); Total Cells Counted 100
[2020-01-31] MEDS: METOPROLOL TARTRATE 5 MG/5 ML VIAL IV SCH ×2 (11:50→17:47)
[2020-01-31] MEDS ORDERED: metroNIDAZOLE INJ 500 MG in PREMIX 1 EACH IV SCH (13:00)
[2020-01-31] MEDS: DEXAMETHASONE 4 MG/1 ML VIAL IV SCH (16:35)
[2020-01-31] MEDS ORDERED: INSULIN REGULAR DRIP 100 ML IV PRN (17:27)
[2020-01-31 17:30] VITALS: BP 90/61
[2020-01-31] MEDS ORDERED: MEROPENEM 500 MG in SODIUM CHLORIDE 0.9% 100 ML IV SCH (18:00)
[2020-01-31] MEDS ORDERED: VECURONIUM 10 MG VIAL IV ONE (18:55)
[2020-01-31] MEDS ORDERED: ETOMIDATE 20 MG/10 ML VIAL IV ONE ×2 (18:55→19:35)
[2020-01-31] MEDS ORDERED: SUCCINYLCHOLINE 200 MG/10 ML VIAL ONE (18:56)
[2020-01-31] MEDS ORDERED: MIDAZOLAM 100 MG in SODIUM CHLORIDE 0.9% 80 ML IV PRN (18:59)
[2020-01-31] MEDS ORDERED: SUCCINYLCHOLINE 200 MG/10 ML VIAL IV ONE (19:35)
[2020-01-31] MEDS ORDERED: MIDAZOLAM 10 MG/2 ML VIAL IV ONE (19:44)
== END 2020-01-31 20:45 | disposition hospice, home (50) | DRG 720 ==
LOC: EDBD → EDUNIT# → N.ED 08:40 → SUATTDRO 10:44 → N.EDINP 10:44 → N.CC 10:57 → N.2E 01-23 13:46 → N.ICU 01-29 15:11 → N.CC 01-31 08:43
PROVIDERS: ADMIT Internal Medicine; ATTEND Internal Medicine

== ENCOUNTER 2020-02-05 08:52 | Inpatient (IN) ==
[2020-02-06 02:51] LABS: Eosinophils # 0.1 10*3/uL (0.0-0.87); Eosinophils % 1.1 % (0.00-10.9); Hematocrit 26.9 VOL% (35.7-47.0); Hemoglobin 8.5 GM/DL (12.0-16.0); Immature Granulocytes % 0.7 %; Immature Granulocytes Absolute 0.05 #; Lymphocytes # 0.7 10*3/uL (1.4-4.0); Lymphocytes % 9.3 % (21.3-54.2); Mean Corpuscular HGB Conc 31.6 GM/DL (32-36); Mean Corpuscular Volume 105.1 FL (87-102); Mean Platelet Volume 12.6 FL (9.6-12.0); Monocytes % 4.2 % (1.7-12.7); NRBC # 0.06 10*3/uL; Neutrophils % 84.7 % (38.7-73.9); Red Blood Count 2.56 MC/CUMM (3.8-5.5); Red Cell Distribution Width 20.7 % (9.3-17.3); White Blood Count 7.1 T/CUMM (4-12)
[2020-02-06 02:52] LABS: ABG Base Excess 6.2 MMOL/L (-2.5-2.5); ABG HCO3 30.1 MMOL/L (20-26); ABG PCO2 44.2 MM HG (35-48); ABG PH 7.451 (7.35-7.45); ABG TCO2 28.3 MMOL/L (23-27)
[2020-02-06 02:54] LABS: Platelet Count 68 T/CUMM (130-400)
[2020-02-06 03:18] LABS: Calcium 8.4 MG/DL (8.5-10.1)
[2020-02-06] MEDS ORDERED: PROMETHAZINE 25 MG/1 ML VIAL IM PRN (03:58)
[2020-02-06] MEDS ORDERED: guaiFENesin/DM ER 600-30 MG TABLET PO PRN (03:58)
[2020-02-06] MEDS ORDERED: diphenhydrAMINE CAP 25 MG CAPSULE PO PRN (03:58)
[2020-02-06] MEDS ORDERED: ONDANSETRON 4 MG/2 ML VIAL IV PRN (03:58)
[2020-02-06] MEDS ORDERED: hydrALAZINE 20 MG/1 ML VIAL IV PRN (03:58)
[2020-02-06] MEDS ORDERED: ZALEPLON 5 MG CAPSULE PO PRN (03:58)
[2020-02-06] MEDS ORDERED: ALBUTEROL/IPRATROPIUM 3 ML NEB RESP TX PRN (03:58)
[2020-02-06] MEDS ORDERED: PANTOPRAZOLE 40 MG VIAL IV SCH (04:00)
[2020-02-06 04:27] LABS: Hypochromasia 1+
[2020-02-06 04:28] LABS: Macrocytosis Slight; Polychromasia Slight
[2020-02-06] MEDS: LACTATED RINGERS 1,000 ML IV SCH ×2 (04:30→12:55)
[2020-02-06] MEDS: LINEZOLID INJ 600 MG in PREMIX 1 EACH IV SCH ×2 (06:03→17:41)
[2020-02-06] MEDS ORDERED: ALBUTEROL 2.5 MG/3 ML NEB RESP TX PRN (07:00)
[2020-02-06] MEDS ORDERED: MAGNESIUM SULF RIDER 2 GM in PREMIX 1 EACH IV ONE (07:33)
[2020-02-06] MEDS: FAMOTIDINE 20 MG/2 ML VIAL IV SCH ×2 (08:53→21:45)
[2020-02-06] MEDS: ENOXAPARIN 40 MG/0.4 ML SYRINGE SUBCUT SCH (08:53)
[2020-02-06] MEDS ORDERED: DOCUSATE SODIUM 100 MG CAPSULE PO SCH (09:00)
[2020-02-06 15:08] LABS: Apearance,Urine CLOUDY (Clear); Bacteria,Urine Occasional /HPF (Few); Bilirubin,Urine Negative (Negative); Blood, Urine Small mg/dL (Negative); Glucose,Urine (UA) Negative (Negative); Hyaline Casts,Urine 9 /LPF (0-3); Ketones,Urine Negative (Negative); Mucus,Urine Many /LPF (Occasional); Nitrite,Urine Negative (Negative); Protein,Urine 30 MG/DL; RBC,Urine 36 /HPF (0-4); Squamous Epithelial Cell,Urine Occasional /HPF (0-10); Urine Color Yellow (Yellow); Urine Specific Gravity 1.019 (1.001-1.035); WBC,Urine 24 /HPF (0-6)
[2020-02-06] MEDS: DOCUSATE SODIUM 100 MG/10 ML UDCUP NG SCH (20:50)
[2020-02-07 04:17] LABS: ABG Base Excess 7.3 MMOL/L (-2.5-2.5); ABG HCO3 31.9 MMOL/L (20-26); ABG Oxygen Saturation 98.6 % (95-100); ABG PCO2 46.1 MM HG (35-48); ABG PH 7.458 (7.35-7.45); ABG PO2 170.4 MM HG (80-95); ABG TCO2 33.3 MMOL/L (23-27)
[2020-02-07 04:52] LABS: Basophils % 0.2 % (0.0-0.8); Eosinophils # 0.1 10*3/uL (0.0-0.87); Eosinophils % 1.6 % (0.00-10.9); Hematocrit 23.9 VOL% (35.7-47.0); Hemoglobin 7.7 GM/DL (12.0-16.0); Immature Granulocytes % 1.1 %; Immature Granulocytes Absolute 0.05 #; Lymphocytes # 0.5 10*3/uL (1.4-4.0); Lymphocytes % 11.6 % (21.3-54.2); Mean Corpuscular HGB Conc 32.2 GM/DL (32-36); Mean Corpuscular Volume 104.8 FL (87-102); Mean Platelet Volume 12.8 FL (9.6-12.0); Monocytes % 5.6 % (1.7-12.7); NRBC # 0.02 10*3/uL; Neutrophils % 79.9 % (38.7-73.9); Red Blood Count 2.28 MC/CUMM (3.8-5.5); Red Cell Distribution Width 20.9 % (9.3-17.3); White Blood Count 4.5 T/CUMM (4-12)
[2020-02-07 04:54] LABS: Platelet Count 58 T/CUMM (130-400)
[2020-02-07] MEDS: LINEZOLID INJ 600 MG in PREMIX 1 EACH IV SCH ×2 (06:01→18:15)
[2020-02-07] MEDS: DOCUSATE SODIUM 100 MG/10 ML UDCUP NG SCH ×2 (08:38→21:02)
[2020-02-07] MEDS: FAMOTIDINE 20 MG/2 ML VIAL IV SCH ×2 (08:38→21:01)
[2020-02-07] MEDS: ENOXAPARIN 40 MG/0.4 ML SYRINGE SUBCUT SCH (09:43)
[2020-02-07 11:46] LABS: Calcium 8.4 MG/DL (8.5-10.1); Osmolality,Calculated 277.4 MOS/KG (273-304)
[2020-02-07] MEDS: FUROSEMIDE 40 MG/4 ML VIAL IV SCH (16:05)
[2020-02-07] MEDS ORDERED: MAGNESIUM HYDROXIDE SUSP 30 ML UDCUP PO PRN (18:17)
[2020-02-07] MEDS ORDERED: ACETAMINOPHEN 325 MG/10.15 ML UDCUP PO PRN (18:17)
[2020-02-07] MEDS: FLUTICASONE/SALMETEROL 250-50 DISKUS 14 DOSE INH SCH (21:01)
[2020-02-07] MEDS: MONTELUKAST 10 MG TABLET PO SCH (21:02)
[2020-02-08 03:58] LABS: Allen Test Positive; Pt O2 Delivery Device BIPAP
[2020-02-08 03:59] LABS: ABG Base Excess 8.6 MMOL/L (-2.5-2.5); ABG HCO3 32.3 MMOL/L (20-26); ABG Oxygen Saturation 95.7 % (95-100); ABG PCO2 46.4 MM HG (35-48); ABG PH 7.466 (7.35-7.45); ABG PO2 72.8 MM HG (80-95); ABG TCO2 30.4 MMOL/L (23-27)
[2020-02-08] MEDS: LINEZOLID INJ 600 MG in PREMIX 1 EACH IV SCH ×2 (06:21→18:29)
[2020-02-08 07:29] LABS: Eosinophils # 0.1 10*3/uL (0.0-0.87); Eosinophils % 1.6 % (0.00-10.9); Hematocrit 25.1 VOL% (35.7-47.0); Hemoglobin 7.9 GM/DL (12.0-16.0); Immature Granulocytes % 0.7 %; Immature Granulocytes Absolute 0.02 #; Lymphocytes # 0.5 10*3/uL (1.4-4.0); Lymphocytes % 17.7 % (21.3-54.2); Mean Corpuscular HGB Conc 31.5 GM/DL (32-36); Mean Corpuscular Volume 106.4 FL (87-102); Mean Platelet Volume 11.7 FL (9.6-12.0); Monocytes % 6.6 % (1.7-12.7); NRBC # 0.02 10*3/uL; Neutrophils % 73.4 % (38.7-73.9); Red Blood Count 2.36 MC/CUMM (3.8-5.5); Red Cell Distribution Width 21.5 % (9.3-17.3); White Blood Count 3.1 T/CUMM (4-12)
[2020-02-08 07:31] LABS: Platelet Count 64 T/CUMM (130-400)
[2020-02-08 07:53] LABS: Calcium 8.6 MG/DL (8.5-10.1); Osmolality,Calculated 273.7 MOS/KG (273-304)
[2020-02-08 08:04] LABS: Hypochromasia 2+; Microcytosis 1+; Platelet Estimate Decreased
[2020-02-08] MEDS: ENOXAPARIN 40 MG/0.4 ML SYRINGE SUBCUT SCH ×2 (09:08→09:23)
[2020-02-08] MEDS: DOCUSATE SODIUM 100 MG/10 ML UDCUP NG SCH ×2 (09:08→21:24)
[2020-02-08] MEDS: MULTIVITAMIN (CENTRUM) TABLET PO SCH (09:08)
[2020-02-08] MEDS: FAMOTIDINE 20 MG/2 ML VIAL IV SCH ×2 (09:08→21:24)
[2020-02-08] MEDS: FLUTICASONE/SALMETEROL 250-50 DISKUS 14 DOSE INH SCH ×2 (09:09→21:24)
[2020-02-08] MEDS: FUROSEMIDE 40 MG/4 ML VIAL IV SCH ×2 (09:09→16:41)
[2020-02-08] MEDS: LACTOBACILLUS ACIDOPHILUS/BULGARICUS CHEW TABLET PO SCH (09:13)
[2020-02-08] MEDS: POLYETHYLENE GLYCOL POWDER 17 GM PACK PO SCH ×2 (09:14→09:24)
[2020-02-08] MEDS ORDERED: POLYETHYLENE GLYCOL POWDER 17 GM PACK PO PRN (09:24)
[2020-02-08] MEDS: MONTELUKAST 10 MG TABLET PO SCH (21:24)
[2020-02-09 04:01] LABS: Allen Test Positive; Pt O2 Delivery Device BIPAP
[2020-02-09 04:02] LABS: ABG Base Excess 11.5 MMOL/L (-2.5-2.5); ABG HCO3 35.2 MMOL/L (20-26); ABG Oxygen Saturation 96.9 % (95-100); ABG PO2 76.2 MM HG (80-95)
[2020-02-09] MEDS: LINEZOLID INJ 600 MG in PREMIX 1 EACH IV SCH (06:03)
[2020-02-09 07:55] LABS: Osmolality,Calculated 273.7 MOS/KG (273-304)
[2020-02-09 08:12] LABS: Ferritin 217.3 ng/ml (8-252)
[2020-02-09 08:20] LABS: Calcium 8.8 MG/DL (8.5-10.1); Osmolality,Calculated 273.7 MOS/KG (273-304)
[2020-02-09] MEDS: ENOXAPARIN 40 MG/0.4 ML SYRINGE SUBCUT SCH (08:43)
[2020-02-09] MEDS: DOCUSATE SODIUM 100 MG/10 ML UDCUP NG SCH ×2 (08:43→21:00)
[2020-02-09] MEDS: MULTIVITAMIN (CENTRUM) TABLET PO SCH (08:43)
[2020-02-09] MEDS: FAMOTIDINE 20 MG/2 ML VIAL IV SCH ×2 (08:44→21:00)
[2020-02-09] MEDS: FUROSEMIDE 40 MG/4 ML VIAL IV SCH ×2 (08:44→15:30)
[2020-02-09] MEDS: FLUTICASONE/SALMETEROL 250-50 DISKUS 14 DOSE INH SCH ×2 (10:01→21:00)
[2020-02-09 11:51] LABS: Basophils % 0.3 % (0.0-0.8); Eosinophils # 0.1 10*3/uL (0.0-0.87); Eosinophils % 2.1 % (0.00-10.9); Hematocrit 29.2 VOL% (35.7-47.0); Immature Granulocytes % 0.3 %; Immature Granulocytes Absolute 0.01 #; Lymphocytes # 0.5 10*3/uL (1.4-4.0); Lymphocytes % 16.2 % (21.3-54.2); Mean Corpuscular HGB Conc 32.5 GM/DL (32-36); Mean Corpuscular Volume 102.5 FL (87-102); Mean Platelet Volume 12.1 FL (9.6-12.0); Monocytes % 5.1 % (1.7-12.7); Red Blood Count 2.85 MC/CUMM (3.8-5.5); Red Cell Distribution Width 21.2 % (9.3-17.3); White Blood Count 3.3 T/CUMM (4-12)
[2020-02-09 11:52] LABS: Hemoglobin 9.5 GM/DL (12.0-16.0); Platelet Count 72 T/CUMM (130-400)
[2020-02-09 12:29] LABS: Anisocytosis 2+; Macrocytosis 2+
[2020-02-09] MEDS: CEFEPIME 1,000 MG in SODIUM CHLORIDE 0.9% 100 ML IV SCH ×2 (15:29→21:00)
[2020-02-09] MEDS: LACTOBACILLUS ACIDOPHILUS/BULGARICUS CHEW TABLET PO SCH (15:59)
[2020-02-09] MEDS: MONTELUKAST 10 MG TABLET PO SCH (21:00)
[2020-02-10] MEDS: CEFEPIME 1,000 MG in SODIUM CHLORIDE 0.9% 100 ML IV SCH ×4 (02:15→20:30)
[2020-02-10 05:22] LABS: Basophils % 0.3 % (0.0-0.8); Eosinophils # 0.1 10*3/uL (0.0-0.87); Eosinophils % 1.7 % (0.00-10.9); Hematocrit 27.3 VOL% (35.7-47.0); Hemoglobin 8.6 GM/DL (12.0-16.0); Immature Granulocytes % 0.3 %; Immature Granulocytes Absolute 0.01 #; Lymphocytes # 0.7 10*3/uL (1.4-4.0); Lymphocytes % 24.5 % (21.3-54.2); Mean Corpuscular HGB Conc 31.5 GM/DL (32-36); Mean Corpuscular Volume 106.2 FL (87-102); Mean Platelet Volume 12.3 FL (9.6-12.0); Monocytes % 6.3 % (1.7-12.7); Neutrophils % 66.9 % (38.7-73.9); Red Blood Count 2.57 MC/CUMM (3.8-5.5); Red Cell Distribution Width 20.9 % (9.3-17.3); White Blood Count 2.9 T/CUMM (4-12)
[2020-02-10 05:28] LABS: Osmolality,Calculated 277.5 MOS/KG (273-304)
[2020-02-10 05:42] LABS: Platelet Count 73 T/CUMM (130-400)
[2020-02-10 05:45] LABS: Hypochromasia 1+; Macrocytosis 1+
[2020-02-10 05:46] LABS: Platelet Estimate Decreased; Polychromasia Few
[2020-02-10] MEDS: DOCUSATE SODIUM 100 MG/10 ML UDCUP NG SCH ×2 (08:46→20:30)
[2020-02-10] MEDS: FUROSEMIDE 40 MG/4 ML VIAL IV SCH ×2 (08:47→15:55)
[2020-02-10] MEDS: MULTIVITAMIN (CENTRUM) TABLET PO SCH (08:47)
[2020-02-10] MEDS: ENOXAPARIN 40 MG/0.4 ML SYRINGE SUBCUT SCH (08:47)
[2020-02-10] MEDS: FAMOTIDINE 20 MG/2 ML VIAL IV SCH ×2 (08:47→20:30)
[2020-02-10] MEDS: LACTOBACILLUS ACIDOPHILUS/BULGARICUS CHEW TABLET PO SCH (08:51)
[2020-02-10] MEDS: FLUTICASONE/SALMETEROL 250-50 DISKUS 14 DOSE INH SCH ×2 (08:51→20:30)
[2020-02-10] MEDS ORDERED: MAGNESIUM SULF RIDER 2 GM in PREMIX 1 EACH IV PRN (14:19)
[2020-02-10] MEDS ORDERED: MAGNESIUM SULF RIDER 4 GM in PREMIX 1 EACH IV PRN (14:19)
[2020-02-10] MEDS: MONTELUKAST 10 MG TABLET PO SCH (20:30)
[2020-02-11] MEDS: CEFEPIME 1,000 MG in SODIUM CHLORIDE 0.9% 100 ML IV SCH ×4 (02:23→20:49)
[2020-02-11] MEDS: ENOXAPARIN 40 MG/0.4 ML SYRINGE SUBCUT SCH (08:12)
[2020-02-11] MEDS: DOCUSATE SODIUM 100 MG/10 ML UDCUP NG SCH ×2 (08:12→20:49)
[2020-02-11] MEDS: FAMOTIDINE 20 MG/2 ML VIAL IV SCH ×2 (08:12→20:49)
[2020-02-11] MEDS: FLUTICASONE/SALMETEROL 250-50 DISKUS 14 DOSE INH SCH ×2 (08:12→20:48)
[2020-02-11] MEDS: FUROSEMIDE 40 MG/4 ML VIAL IV SCH ×2 (08:12→15:41)
[2020-02-11] MEDS: MULTIVITAMIN (CENTRUM) TABLET PO SCH (08:12)
[2020-02-11] MEDS: LACTOBACILLUS ACIDOPHILUS/BULGARICUS CHEW TABLET PO SCH (08:12)
[2020-02-11 10:16] LABS: Basophils % 0.3 % (0.0-0.8); Eosinophils % 1.2 % (0.00-10.9); Hematocrit 31.9 VOL% (35.7-47.0); Hemoglobin 10.1 GM/DL (12.0-16.0); Immature Granulocytes % 0.3 %; Immature Granulocytes Absolute 0.01 #; Lymphocytes # 0.6 10*3/uL (1.4-4.0); Mean Corpuscular HGB Conc 31.7 GM/DL (32-36); Mean Platelet Volume 11.5 FL (9.6-12.0); Monocytes % 6.7 % (1.7-12.7); Neutrophils % 74.5 % (38.7-73.9); Red Blood Count 3.01 MC/CUMM (3.8-5.5); White Blood Count 3.4 T/CUMM (4-12)
[2020-02-11 10:18] LABS: Platelet Count 85 T/CUMM (130-400)
[2020-02-11 10:41] LABS: Anisocytosis 2+; Basophilic Stippling Slight; Macrocytosis Slight; Platelet Estimate Decreased
[2020-02-11 11:00] LABS: Folate 19.3 NG/ML (5.4-24.0)
[2020-02-11] MEDS: MONTELUKAST 10 MG TABLET PO SCH (20:49)
[2020-02-12] MEDS: CEFEPIME 1,000 MG in SODIUM CHLORIDE 0.9% 100 ML IV SCH ×2 (03:51→08:21)
[2020-02-12 04:28] LABS: Basophils % 0.5 % (0.0-0.8); Eosinophils % 0.5 % (0.00-10.9); Hematocrit 29.3 VOL% (35.7-47.0); Hemoglobin 9.7 GM/DL (12.0-16.0); Immature Granulocytes % 0.3 %; Immature Granulocytes Absolute 0.01 #; Lymphocytes # 0.8 10*3/uL (1.4-4.0); Lymphocytes % 19.4 % (21.3-54.2); Mean Corpuscular HGB Conc 33.1 GM/DL (32-36); Mean Corpuscular Volume 102.4 FL (87-102); Mean Platelet Volume 12.3 FL (9.6-12.0); Monocytes % 8.3 % (1.7-12.7); Red Blood Count 2.86 MC/CUMM (3.8-5.5); Red Cell Distribution Width 20.2 % (9.3-17.3); White Blood Count 3.9 T/CUMM (4-12)
[2020-02-12 04:33] LABS: Platelet Count 73 T/CUMM (130-400)
[2020-02-12 04:37] LABS: Calcium 8.9 MG/DL (8.5-10.1); Osmolality,Calculated 278.7 MOS/KG (273-304)
[2020-02-12] MEDS: LACTOBACILLUS ACIDOPHILUS/BULGARICUS CHEW TABLET PO SCH (08:21)
[2020-02-12] MEDS: MULTIVITAMIN (CENTRUM) TABLET PO SCH (08:21)
[2020-02-12] MEDS: FLUTICASONE/SALMETEROL 250-50 DISKUS 14 DOSE INH SCH (08:21)
[2020-02-12] MEDS: DOCUSATE SODIUM 100 MG/10 ML UDCUP NG SCH (08:21)
[2020-02-12] MEDS: FUROSEMIDE 40 MG/4 ML VIAL IV SCH ×2 (08:21→15:35)
[2020-02-12] MEDS: ENOXAPARIN 40 MG/0.4 ML SYRINGE SUBCUT SCH (08:21)
[2020-02-12 15:58] VITALS: BP 100/55
[2020-02-12] MEDS ORDERED: SULFAMETHOX/TRIMETHOPRIM 800-160 MG TABLET PO SCH (21:00)
== END 2020-02-12 16:32 | DRG 137 ==
LOC: N.CC 02-06 02:05 → SUATTDRO 02-06 02:05 → N.2E 02-07 18:17
PROVIDERS: ADMIT Internal Medicine; ATTEND Hospitalist